=== PATIENT | male | born 1950 | race Caucasian/White ===

== ENCOUNTER 2024-11-25 10:54 | Day surgery (SDC) | payer MEDICARE, OTHER, SELFPAY ==
[2024-11-16 07:46] VITALS: BMI 37.9
[2024-11-25] VITALS (10 sets, daily range): BP systolic 114–160; BP diastolic 63–82; BMI 34.6
[2024-11-25] MEDS: LOW STRENGTH ASPIRIN 81 MG PO (11:32)
[2024-11-25] MEDS: NSS 347 ML IV (11:32)
[2024-11-25 11:52] LABS: Glucose - Point of Care 117 mg/dl (70-99)
--- NOTE | 2024-11-25 17:27 | CONSULT.STRU ---
Consultation
-
Date/Time Consultation Requested: 11/25/2024
Date/Time Consultation Performed: 11/25/2024
Requesting Provider: Malcolm Hopson MD
Performing Provider: HUI Lazo
Reason for Consultation: /TAVR
Patient History
Physicians
Family Physician: Sharron Morel MD
Outpatient Wastewater Treatment Plant Instructor: Vance Grossman DO
Primary Wastewater Treatment Plant Instructor: Vance Grossman DO
History of Present Illness
Mr. Alex is a very pleasant 74 yom with a past medical history significant for CAD, DM, , HTN, TIA, and Carotid artery disease. Echocardiogram from 06/04/2024 is notable for an EF 60-65%, Ascending aorta 4.5cm, aortic root 3.8 cm, AV P/M 115/54,
LOS 1.0, pk shaylee. 5.4, mild AI, mild MR, mild TR. 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 His cardiac catheterization from today demonstrated in LAD stent restenosis. From a symptomatology standpoint, patient describes chest
pain after eating, he denies HERNANDEZ stating he can climb two full flights of stairs without difficulty. Discussed the pathophysiology and treatment options of including SAVR and TAVR. Explained the evaluation process comprising of lab work, CT
scan, dental clearance, CT surgical consult, and a heart team discussion. Informed the patient that the CT scan would give us a lot of valuable information to help develop a plan of care considering his CAD, , and dilated aorta. Explained that
once all of the testing is completed the heart team will review and make a recommendation for best treatment option. TAVR booklet, prescriptions, appointments, and contact information given to patient. Allowed for and answered questions at bedside.
Past Medical History
Past Medical History: CAD, CVA/TIA, HTN, Hypercholesterolemia, NIDDM, ELÍAS (uses CPAP), Valvular Disease () and Other (bilateral carotid artery disease)
Past Surgical History
Past Surgical History: Other (anal fissure, left foot neuroma, left knee/tendon repair. )
Dental History
Family Dental practice in [place]. Patient will make an appointment
Family History
Mother: N/A
Father: N/A
Social History
Alcohol: Occasional
Drug: None
Tobacco: Non-Smoker
Personal:
Living: With Spouse
Allergies
Allergy/AdvReac Type Severity Reaction Status Date / Time
No Known Drug Allergies Allergy Unknown Verified 11/25/24 11:16
Home Medications
�Medication �Instructions �Recorded �Confirmed �Type
metformin 500 mg tablet 500 mg PO BID 11/25/12 11/25/24 History
metoprolol succinate 50 mg 50 mg PO HS 11/25/12 11/25/24 History
tablet,extended release 24 hr
nitroglycerin 0.4 mg sublingual 0.4 mg sublingual [id number] PRN 11/25/12 11/25/24 History
tablet chest pain
aspirin 81 mg tablet,delayed 81 mg PO HS 11/15/24 11/25/24 History
release
atorvastatin 40 mg tablet 40 mg PO HS 11/15/24 11/25/24 History
hydrochlorothiazide 25 mg tablet 25 mg PO HS 11/15/24 11/25/24 History
losartan 100 mg tablet 100 mg PO DAILY 11/15/24 11/25/24 History
hynfqfnsezzl-iqjqdpsy-xwcxqn tablet 1 tab PO DAILY 11/15/24 11/25/24 History
omega-3 fatty acids 1,000 mg 1,000 mg PO HS 11/25/24 11/25/24 History
capsule
STS%
STS %: 0.642
Review of Systems
-
History Source: Patient
General: Reports No Symptoms
HEENT: Reports No Symptoms
Respiratory: Reports No Symptoms
Cardiac: Reports Chest Pain (after eating)
Abdomen/GI: Reports No Symptoms
: Reports No Symptoms
Musculoskeletal: Reports No Symptoms
Skin: Reports No Symptoms
Neurological: Reports No Symptoms
Vascular: Reports No Symptoms
Physical Exam
Vital Signs
Temp 97.9 F 11/25/24 12:06
Pulse 60 11/25/24 17:00
Resp Rate 21 11/25/24 17:00
Blood pressure 149/69 11/25/24 16:41
Blood pressure extremity used: Right upper arm 11/25/24 16:35
Position: Sitting 11/25/24 16:35
MAP (cuff-Kelley Monitor) 92 11/25/24 16:41
SaO2 100 11/25/24 17:00
Oxygen Mode of Delivery Room air 11/25/24 16:35
Can the patient verbally communicate their pain? Yes 11/25/24 16:35
Actual Weight 115.666 kg 11/25/24 11:20
Body Mass Index (BMI) 34.6 11/25/24 11:20
Labs
11/16/2024
HH: 12.6/37.1
Plt: 212K
BUN/Creatinine: 13/0.9
GFR >60
Diagnostic Studies
Procedure Type:�Isolated CABG
Perioperative Outcome Estimate %
Operative Mortality 0.642%
Morbidity & Mortality 4.97%
Stroke 0.999%
Renal Failure 0.805%
Reoperation 1.16%
Prolonged Ventilation 2.42%
Deep Sternal Wound Infection 0.141%
Long Hospital Stay (>14 days) 3.03%
Short Hospital Stay (<6 days)* 53.8%
Exam
General: Well Developed, Well Nourished and No Apparent Distress
HEENT: Normocephalic
Neck: Trachea Midline
Respiratory: Clear (antriorly)
Cardiac: Regular Rhythm and Murmur (III/)
GI: Soft and Non Tender
Rectal: Deferred by Provider
Skin: Warm
Neuro: Awake
Psych: Calm
Assessment / Plan
-
Aortic stenosis
Continue TAVR evaluation
Trend creatinine after contrast (Rx given)
TAVR CT scan (12/07)
CT surgical consult (MPT 12/14)
Frailty testing and KCCQ 12 at consult
Dental clearance
Continue aspirin
Repeat Echocardiogram
Heart team discussion
Data Reviewed
-
Hold Worker: Discussed with Physician
Echo: Discussed with Physician
Labs: Labs Reviewed by me
Old Records: Reviewed
Total Time Spent with Patient (in minutes): 45
--- NOTE | 2024-11-25 18:31 | ITS.CL.PN ---
Electronic Instrument Trades Worker - Procedure Note
Procedure
Procedure Note:
CARDIAC CATHETERIZATION REPORT
Date of Procedure: 11/25/2024
Referring: Dr. Vance Grossman DO
Indication: severe aortic stenosis, chest pain
PROCEDURE(S)
1. left heart catheterization
2. right heart catheterization
ACCESS: 6F right radial artery (closure: radial band), 5 Honduran right brachial vein (closure manual hemostasis)
CATHETERS
1. 6F JR4
2. 6F JL3.5
3. 5F balloon tipped catheter
MODERATE SEDATION: 30 minutes of moderate sedation was utilized. An independent biomedical engineering aide was present to assist with and help manage the patient's level of consciousness and physiologic status.
ULTRASOUND GUIDED VASCULAR ACCESS (right radial artery): Ultrasound was utilized for vascular access. The vessel was visualized under ultrasound and noted to be patent. An image of the vessel was stored permanently in the patient's medical record.
Under direct ultrasound guidance, vascular access was obtained using a modified Seldinger technique and a 6 Honduran sheath was placed.
ULTRASOUND GUIDED VASCULAR ACCESS (right brachial vein): Ultrasound was utilized for vascular access. The vessel was visualized under ultrasound and noted to be patent. An image of the vessel was stored permanently in the patient's medical record.
Under direct ultrasound guidance, vascular access was obtained using a modified Seldinger technique and a 5 Honduran sheath was placed.
HEMODYNAMIC DATA
AO 117/63 (mean 84)
RA 9
RV 31/8 (EDP 12)
PA 25/14 (mean 19)
PCWP 13
CO/CI 6.04/2.56
SVR 980
PVR 1.0
CORONARY ANGIOGRAPHY
Dominance: right
LM: Large long vessel with mild ostial stenosis
LAD: Large vessel giving rise to a large early rising D1. There are overlapping stents from the proximal to mid/distal LAD. There is diffuse mild ISR as well as two focal areas of moderate/severe ISR in the proximal and mid LAD with GEOVANNA-3 flow
distally. The diagonal has a focal 70% stenosis in the proximal aspect of the vessel and otherwise diffuse mild disease.
LCx: Moderate caliber vessel giving rise to a small high rising OM1, moderate caliber bifurcating OM2, and small LPL branch. There is mild nonobstructive disease
RCA: Large vessel giving rise to a moderate caliber RPDA, large RPL1, and moderate caliber RPL2. There is diffuse, mild nonobstructive disease throughout the vessel. There is a 40% stenosis at the ostium.
RADIATION: dose 980 mGy; DAP 73.2 Gy*cm2; fluoroscopy time 17.2 min
CONCLUSIONS
1. coronary artery disease as described with moderate-severe ISR of previously placed LAD stents
2. mildly elevated biventricular filling pressures, normal pulmonary artery pressure, and normal cardiac output and index
RECOMMENDATIONS
1. expectant management after cardiac catheterization via right radial approach
2. proceed with TAVR workup with CT chest/abdomen/pelvis
3. pending completion of workup we will discuss options for valve replacement and revascularization at our multi-disiplinary TAVR meeting
Copy to: Dr. Vance Grossman DO (hospital product specialist)
Signed: Malcolm Hopson MD, PhD
== END 2024-11-25 18:53 | disposition home or self-care (01) ==
LOC: CATH 10:54
PROVIDERS: ATTENDING PHYSICIAN Internal Medicine Cardiovascular Disease; FAMILY PHYSICIAN Family Medicine; OTHER PHYSICIAN Internal Medicine Cardiovascular Disease
DX: I25.10 Atherosclerotic heart disease of native coronary artery without angina pectoris (principal); Z95.5 Presence of coronary angioplasty implant and graft; I77.9 Disorder of arteries and arterioles, unspecified; R07.9 Chest pain, unspecified; E66.01 Morbid (severe) obesity due to excess calories; E78.00 Pure hypercholesterolemia, unspecified; E11.9 Type 2 diabetes mellitus without complications; R06.09 Other forms of dyspnea; I35.0 Nonrheumatic aortic (valve) stenosis; I70.0 Atherosclerosis of aorta; I10 Essential (primary) hypertension; Z79.84 Long term (current) use of oral hypoglycemic drugs; Z86.73 Personal history of transient ischemic attack (TIA), and cerebral infarction without residual deficits; Z79.82 Long term (current) use of aspirin; G47.33 Obstructive sleep apnea (adult) (pediatric); Z79.899 Other long term (current) drug therapy; Z86.018 Personal history of other benign neoplasm
CPT/HCPCS: 76937; 82962; 93306; 93456; 99152; 99153; C1769; C1894; Q9967

== ENCOUNTER → 2024-12-07 10:20 | Outpatient (REF) | payer MEDICARE, OTHER, SELFPAY | LOC: RAD 10:20 | PROVIDERS: ATTENDING PHYSICIAN Nurse Practitioner Acute Care; FAMILY PHYSICIAN Family Medicine | DX: I35.0 Nonrheumatic aortic (valve) stenosis (principal) | CPT/HCPCS: 74174; 75572; Q9967 ==

== ENCOUNTER 2024-12-30 04:45 | Inpatient (IN) | payer MEDICARE, OTHER, SELFPAY ==
[2024-12-16 07:54] VITALS: BMI 40.6
[2024-12-16 08:48] LABS: % Basophils 1.2 % (0-2); % Eosinophils 3.7 % (0-6); % Immature Granulocytes 0.3 % (0-0.5); % Lymphocytes 31.6 % (20.5-51.1); % Monocytes 10.1 % (1.7-9.3); % Neutrophils 53.1 % (42.2-75.2); Absolute Basophils 0.1 10^3/uL (0-0.2); Absolute Eosinophils 0.2 10^3/uL (0-0.7); Absolute Lymphocytes 1.8 10^3/uL (1.2-3.4); Absolute Monocytes 0.6 10^3/uL (0.1-0.6); Hematocrit 35.7 % (39.0-52.0); Hemoglobin 12.3 g/dL (13.0-18.0); Mean Corp Hgb Conc. 34.5 g/dL (33.0-37.0); Mean Corpuscular Hgb 33.3 pg (27.0-31.0); Mean Corpuscular Volume 96.7 fL (80.0-94.0); Mean Platelet Volume 9.3 fL (7.4-10.4); Nucleated Red Blood Cells % 0 % (-); Platelet Count 209 10^3/uL (130-400); Red Blood Cell Count 3.69 10^6/uL (4.70-6.10); Red Cell Dist. Width 12.9 % (11.5-14.5); White Blood Cell Count 5.7 10^3/uL (4.8-10.8)
[2024-12-16 08:52] LABS: INR 0.97; PT 13.4 Sec (11.4-14.6)
[2024-12-16 08:53] LABS: APTT 29.3 Sec (23.4-35.0)
[2024-12-16 08:55] LABS: Urine Albumin Negative (Neg - Trace); Urine Bilirubin Negative (Negative); Urine Character Clear (Clear); Urine Color Yellow; Urine Glucose Negative (Negative); Urine Ketone Negative (Negative); Urine Leukocyte Negative (Negative); Urine Nitrite Negative (Negative); Urine Occult Blood Negative (Negative); Urine Specific Gravity 1.005 (<1.030); Urine Urobilinogen Negative (Neg - 1+)
[2024-12-16 09:10] LABS: ALT (SGPT) 24 U/L (0-50); AST (SGOT) 22 U/L (17-59); Albumin 4.2 g/dl (3.5-5.0); Alkaline Phosphatase 78 U/L (38-126); Blood Urea Nitrogen 17 mg/dl (9-20); Calcium 9.6 mg/dl (8.4-10.2); Carbon Dioxide 30 mmol/L (22-30); Chloride 103 mmol/L (98-107); Direct Bilirubin 0.2 mg/dl (0.0-0.4); Estimated Creatinine Clearance 91 ml/min; Glucose 141 mg/dl (70-99); Sodium 138 mmol/L (135-145); Total Bilirubin 0.5 mg/dl (0.2-1.3); Total Protein 6.9 g/dl (6.3-8.2); eGFR > 60.00
--- NOTE | 2024-12-16 10:09 | CM ---
CM following for DC planning needs.
Met w/ patient during PATs for planned CT Surg., 12/30.
Pt. relays that he resides w/ spouse in a private, 2 st home w/ approx. 4 TERESA. Functionally, patient is indep. prior to admission w/ ADLs, mobility without the use of any assisted device. Pt. works part-time in [employer].
Pt. has RX plan and would use [facility] in [place] for prescription needs.
Reviewed pre and post op routines.
Soap, shower instruction and Cardiac Surgery booklet provided.
Reviewed post op restrictions to include lifting, driving, flying and sternal precautions.
Reviewed post op MD appointments, Cardiac Rehab and visit from CT Transitional Care RN.
Plan is for CT Surg 12/30
Anticipated DC plan is for home w/ CT Transitional Care RN.
[2024-12-16 10:19] LABS: Glycohemoglobin (HgbA1c) 6.5 % (4.0-5.6)
[2024-12-30 04:52] VITALS: BP 154/87
[2024-12-30 04:54] VITALS: BP 169/85
[2024-12-30] MEDS: MAGNESIUM OXIDE 500 MG PO (05:36)
[2024-12-30] MEDS: PROTONIX 40 MG PO (05:36)
[2024-12-30] MEDS: LOPRESSOR 25 MG PO (05:36)
[2024-12-30] MEDS: BACTROBAN 2% OINTMENT 1 APPLIC NASAL ×2 (05:40→19:26)
[2024-12-30 06:00] VITALS: BMI 35.1
--- NOTE | 2024-12-30 06:05 | PTCARENOTE ---
Patient arrived on unit as a same day admission. Ambulated into room, confirmed 2 CHG showers, clipped and wiped with CHG in preparation for surgery. Patient reports taking fish oil and losartan until yesterday. CVPA aware.
[2024-12-30 07:30] LABS: ACT+ - POC 93 Seconds (82-134)
[2024-12-30 07:54] LABS: Urine Albumin Negative (Neg - Trace); Urine Bilirubin Negative (Negative); Urine Character Clear (Clear); Urine Color Yellow; Urine Glucose Negative (Negative); Urine Ketone Negative (Negative); Urine Leukocyte Negative (Negative); Urine Nitrite Negative (Negative); Urine Occult Blood Negative (Negative); Urine Specific Gravity 1.015 (<1.030); Urine Urobilinogen Negative (Neg - 1+)
--- NOTE | 2024-12-30 08:41 | CM ---
Reviewed chart. Mr. Alex is in the operating room today.. Prior to admission he resides with his spouse in a two story home with four steps ti enter. Prior to admission he was independent with ambulation and adls. He has a prescription plan and
uses [facility]. Medial work-up in progress. The discharge plan is to return home with his spouse and a home visit by the Transitional Care Nurse when medically stable.
[2024-12-30 10:07] LABS: B.E. - POC -0.5 mmol/L; Glucose - POC 149 mg/dl (70-99); HCO3 - POC 25 mmol/L (21-28); Hematocrit - POC 34 % PCV (42-52); Hemodilution- POC No; Hemoglobin Calculated - POC 11.5; Ionized Calcium - POC 1.22 mmol/L (1.15-1.33); Lactate - POC 1.51 mmol/L (0.36-0.75); O2 Saturation %Calculated-POC 99.8 % (94-98); PCO2 - POC 42 mmHg (35-48); PO2 - POC 242 mmHg (83-108); Potassium - POC 3.6 mmol/L (3.5-5.1); Sodium - POC 143 mmol/L (136-145); Specimen Type - POC Arterial; pH - POC 7.38 (7.35-7.45)
[2024-12-30 10:29] LABS: B.E. - POC 3.5 mmol/L; Glucose - POC 158 mg/dl (70-99); HCO3 - POC 29 mmol/L (21-28); Hematocrit - POC 25 % PCV (42-52); Hemodilution- POC Yes; Hemoglobin Calculated - POC 8.4; Ionized Calcium - POC 1.03 mmol/L (1.15-1.33); Lactate - POC 1.63 mmol/L (0.36-0.75); O2 Saturation %Calculated-POC 99.9 % (94-98); PCO2 - POC 50 mmHg (35-48); PO2 - POC 358 mmHg (83-108); Potassium - POC 4.8 mmol/L (3.5-5.1); Sodium - POC 138 mmol/L (136-145); Specimen Type - POC Arterial; pH - POC 7.38 (7.35-7.45)
[2024-12-30 10:45] LABS: B.E. - POC 2.6 mmol/L; Glucose - POC 182 mg/dl (70-99); HCO3 - POC 29 mmol/L (21-28); Hematocrit - POC 24 % PCV (42-52); Hemodilution- POC Yes; Hemoglobin Calculated - POC 8.3; Ionized Calcium - POC 1.05 mmol/L (1.15-1.33); O2 Saturation %Calculated-POC 99.9 % (94-98); PCO2 - POC 53 mmHg (35-48); PO2 - POC 364 mmHg (83-108); Potassium - POC 4.9 mmol/L (3.5-5.1); Sodium - POC 139 mmol/L (136-145); Specimen Type - POC Arterial; pH - POC 7.34 (7.35-7.45)
[2024-12-30 10:59] LABS: ACT+ - POC 691 Seconds (82-134)
[2024-12-30 11:21] LABS: B.E. - POC 1.2 mmol/L; Glucose - POC 211 mg/dl (70-99); HCO3 - POC 28 mmol/L (21-28); Hematocrit - POC 28 % PCV (42-52); Hemodilution- POC Yes; Hemoglobin Calculated - POC 9.5; Ionized Calcium - POC 1.07 mmol/L (1.15-1.33); Lactate - POC 2.46 mmol/L (0.36-0.75); O2 Saturation %Calculated-POC 99.9 % (94-98); PCO2 - POC 53 mmHg (35-48); PO2 - POC 342 mmHg (83-108); Potassium - POC 4.7 mmol/L (3.5-5.1); Sodium - POC 139 mmol/L (136-145); Specimen Type - POC Arterial; pH - POC 7.33 (7.35-7.45)
[2024-12-30 11:31] LABS: ACT+ - POC 537 Seconds (82-134)
[2024-12-30 11:44] LABS: B.E. - POC -2.3 mmol/L; Glucose - POC 173 mg/dl (70-99); HCO3 - POC 24 mmol/L (21-28); Hematocrit - POC 29 % PCV (42-52); Hemodilution- POC Yes; Hemoglobin Calculated - POC 9.8; Ionized Calcium - POC 1.07 mmol/L (1.15-1.33); Lactate - POC 2.63 mmol/L (0.36-0.75); O2 Saturation %Calculated-POC 99.9 % (94-98); PCO2 - POC 47 mmHg (35-48); PO2 - POC 280 mmHg (83-108); Sodium - POC 141 mmol/L (136-145); Specimen Type - POC Arterial; pH - POC 7.32 (7.35-7.45)
[2024-12-30 11:54] LABS: ACT+ - POC 448 Seconds (82-134)
[2024-12-30 12:14] LABS: B.E. - POC 0.6 mmol/L; Glucose - POC 137 mg/dl (70-99); HCO3 - POC 27 mmol/L (21-28); Hematocrit - POC 29 % PCV (42-52); Hemodilution- POC Yes; Lactate - POC 2.53 mmol/L (0.36-0.75); PCO2 - POC 51 mmHg (35-48); PO2 - POC 412 mmHg (83-108); Potassium - POC 3.7 mmol/L (3.5-5.1); Sodium - POC 143 mmol/L (136-145); Specimen Type - POC Arterial; pH - POC 7.33 (7.35-7.45)
[2024-12-30 12:26] LABS: ACT+ - POC 618 Seconds (82-134)
[2024-12-30 12:32] LABS: B.E. - POC -1.1 mmol/L; Glucose - POC 147 mg/dl (70-99); HCO3 - POC 25 mmol/L (21-28); Hematocrit - POC 30 % PCV (42-52); Hemodilution- POC Yes; Hemoglobin Calculated - POC 10.1; Ionized Calcium - POC 1.06 mmol/L (1.15-1.33); Lactate - POC 2.71 mmol/L (0.36-0.75); O2 Saturation %Calculated-POC 99.9 % (94-98); PCO2 - POC 44 mmHg (35-48); PO2 - POC 361 mmHg (83-108); Potassium - POC 4.5 mmol/L (3.5-5.1); Sodium - POC 142 mmol/L (136-145); Specimen Type - POC Arterial; pH - POC 7.35 (7.35-7.45)
[2024-12-30] MEDS: ANCEF 10 IV ×2 (13:16→15:06)
[2024-12-30 13:22] LABS: ACT+ - POC 104 Seconds (82-134)
[2024-12-30 13:47] LABS: B.E. - POC -2.4 mmol/L; Glucose - POC 195 mg/dl (70-99); HCO3 - POC 24 mmol/L (21-28); Hematocrit - POC 27 % PCV (42-52); Hemodilution- POC Yes; Hemoglobin Calculated - POC 9.2; Ionized Calcium - POC 1.17 mmol/L (1.15-1.33); Lactate - POC 2.32 mmol/L (0.36-0.75); O2 Saturation %Calculated-POC 99.9 % (94-98); PCO2 - POC 45 mmHg (35-48); PO2 - POC 306 mmHg (83-108); Sodium - POC 144 mmol/L (136-145); Specimen Type - POC Arterial; pH - POC 7.33 (7.35-7.45)
--- NOTE | 2024-12-30 13:48 | W.CVOR.SURPR ---
CVOR Surgeon Immed Pre Op
-
I have examined this patient prior to performance of the scheduled procedure.
The patient's condition is unchanged from the time of the dictated/written History and
Physical and the patient is able to undergo the scheduled procedure.
--- NOTE | 2024-12-30 13:48 | W.IMMPOSTOP ---
Addendum entered and electronically signed by Colton Coleman MD 12/30/24 15:33:
[id number]
Original Note:
Surgical Immed Post Op Note
-
CARDIAC SURGERY OPERATIVE NOTE:
Preoperative Dx:
CAD s/p prior LAD stents w/ ISR, 70% prox dz in large D1, 40% disease in ostial RCA
Severe aortic stenosis (P/M 66/36, LOS 1.3), mild AI
FHx sig for AF
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
Hx of TIA/CVA - no residual defects
NIDDM
MO (BMI 35.0)
ELÍAS on CPAP
HTN
Postoperative Dx:
Same
Procedures:
1) Median sternotomy
2) Takedown of KIRSTIN (narrow pedicle)
3) Endoscopic harvest/prep of RLE GSV
4) CABG x 2 (KIRSTIN to LAD, GSV to D1)
5) ELAA (45mm AtriClip)
6) AVR (#25 Inspiris Resilia)
Surgeon:
Colton Coleman M.D.
Assistants:
Lenore RedeerA.-C.; endoscopic RLE GSV harvest/prep; legal executive assistant throughout
Lenore LinderA.-CWendy; assist w/ endoscopic RLE GSV prep/closure; [id number]-pgtu sternotomy closure
Anesthesia:
Donn Islas M.D. and Alexy Crawford, Kimberly.R.N.A.
Perfusion:
Ro Dejesus C.C.P.; XC: 149min, CPB: 185min
Findings:
KIRSTIN was a healthy conduit w/ very brisk blood flow; ELD 2.75mm
GSV was a healthy conduite w/ ELD 3.0-3.5mm, normal wor[place]
LAD was visible on the epicardial surface w/ visible stents from proximal to distal midpoint of vessel. Anastomosis performed in proximal aspect of distal LAD approximately 1cm distal to end of prior stents; slightly thin walled, but w/ reasonable
ELD 2.50mm
D1 was visible on the epicardial surface, fairly dense scattered calcifications. Anastomosis performed at approximate midpoint of course. Normal wor[place] at anastomotic site, ELD 2.50mm (anastomosis performed over 1.5mm intracoronary shunt secondary
to non-coronary collateral flow).
MATT was of windsock morphology
The ascending aorta was normal in appearance and wall thickness.
AV was trileaflet w/ profound bulky leaflet calcifications with extensive, near circumferential annular extension. Calcium extended into and became congruent with aortic wall calcium surrounding aortic root. Most profound calcifications were at
the junction between the LCC and RCC and along the LCC annulus. There were also significant calcifications at the junction of the NCC and RCC.
AVR was completed w/ 15 interrupted, pledgetted valve sutures and CorKnots w/ placement of #25 Inspiris Resilia valve. No AI/PVL, mean gradient 8mmHg under GA
Complications:
New bundle branch block - temporary epicardial V-wire in place
During CPB, a connection on the heart-lung machine became disconnected (bottom of hemoconcentrator) w/ a fair amount of blood loss. CPB was very transiently discontinued to address this issue, during which time the patient's MAPs expectedly
decreased. The issue was addressed and flows were restored w/ restablishment of good perfusion/MAPs. The patient was transfused to address the ELB associated with this malfunction/disconnection.
Transfusions:
2U PRBC
Implants:
[employer], Inspiris Resilia AVR, #25mm, SN: [id number]
AtriClip, 45mm, LOT [id number]
Bipolar epicardial V-wire x 1
CT x 4 (B/L pleural, inferior mediastinal, superior mediastinal)
Sternal wires x 8
Sternal 'X' plate w/ 4 - 14mm and 4 - 12mm screws
Sternal 'Square' plate w/ 4 - 12mm
Condition:
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
GTTS: levophed 4, precedex 0.5, insulin 2
Stable/guarded to CVICU
[2024-12-30 14:40] LABS: Glucose - Point of Care 99 mg/dl (70-99)
--- NOTE | 2024-12-30 14:42 | W.PN.CD ---
Addendum entered and electronically signed by Enmanuel Gordon MD 12/30/24 16:07:
I saw and examined the patient.
The COMPUTER CONSULTANT's note was reviewed and I agree with the note.
Comment:
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
Some blood loss with surgery. He is intubated and sedated. He is on levophed and nicardipine gtt. intubated and calm, rrr normal s1s2, lungs cta, extremities cool, skin pale.Will continue to wean gtts as able, will hopefully extubate today.
Supportive care post op day 0. ECG with new lbbb from incomplete, will watch.
Original Note:
Today's Communication / Plan
-
Close post-op monitoring and care with weaning of drips and vent as tolerated per CT surgery/CVICU protocol
Impression / Plan
-
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
Aortic stenosis, coronary artery disease:
-s/p CABG x 2 (KIRSTIN to LAD, GSV to D1), ELAA (45mm AtriClip), 6) AVR (#25 Inspiris Resilia), Dr. Coleman 12/30/24
-intra-op JUAN CARLOS with EF 55-60%
-post-op EKG SR with LBBB (previously IC LBBB), follow telemetry
-received 2 units PRBC intra-op
-intubated and sedated post-op
-remains on Levophed
-CT's and barron in place
-ASA, statin, BB
HTN:
-monitor post-op
-on ARB/HCTZ/metoprolol as OP
-on levo as above post-op
HLD:
-statin
DM:
-insulin drip ordered post-op per protocol
Physical Exam
Vital Signs/Labs
Vital Signs
Pulse BP Pulse Ox
72 154/87 97
12/30/24 05:36 12/30/24 05:36 12/30/24 04:51
12/29/24 12/30/24 12/31/24
06:59 06:59 06:59
Actual Weight 117.2 kg
PT 13.4 Sec (11.4-14.6) 12/16/24 08:06
INR 0.97 12/16/24 08:06
APTT 29.3 Sec (23.4-35.0) 12/16/24 08:06
Physical Exam
Constitutional: No acute distress
EENT: Anicteric
Cardiovascular: Rhythm & rate is regular
Respiratory: Lungs clear to auscul. and Other (intubated/ventilated)
Neuro/Psych: Other (sedated)
Other: Skin (midsternal incision site dressing CDI)
Data Reviewed
-
Date of Service: December 30, 2024
EKG: Tracing Personally Visualized and interpreted (SR with LBBB) and Other (tele SR)
Medical Tests (PFT, Pathology etc): Report Reviewed by me (EF on intra-op JUAN CARLOS as noted)
Labs: Labs Reviewed by me
[2024-12-30 14:43] LABS: B.E. -9.7 mmol/L; Ionized Calcium 0.86 mMOL/L (1.15-1.33); O2 Saturation % 99.8 % (94-98); PCO2 31 mmHg (35-48); PO2 89 mmHg (83-108); Sodium 141 mMOL/L (136-145); pH 7.31 (7.35-7.45)
[2024-12-30 14:47] LABS: HCO3 15.6 mmol/L (21-28); Hematocrit 28.1 % (39.0-52.0); Hemoglobin 9.8 g/dL (13.0-18.0); Platelet Count 117 10^3/uL (130-400); Potassium 2.2 mMOL/L (3.5-5.1)
[2024-12-30 14:56] LABS: B.E. - POC -1.6 mmol/L; Blood Urea Nitrogen - POC 17 mg/dl (3-120); Chloride - POC 108 mmol/L (96-111); Creatinine - POC 0.93 mg/dl (0.3-1.0); Glucose - POC 180 mg/dl (70-99); HCO3 - POC 24 mmol/L (21-28); Hematocrit - POC 27 % PCV (42-52); Hemodilution- POC Yes; Hemoglobin Calculated - POC 9.3; Ionized Calcium - POC 1.23 mmol/L (1.15-1.33); Lactate - POC 2.23 mmol/L (0.36-0.75); O2 Saturation %Calculated-POC 97.2 % (94-98); PCO2 - POC 46 mmHg (35-48); PO2 - POC 100 mmHg (83-108); Sodium - POC 142 mmol/L (136-145); Specimen Type - POC Arterial; pH - POC 7.34 (7.35-7.45)
[2024-12-30 15:00] LABS: INR 1.47; PT 18.3 Sec (11.4-14.6)
[2024-12-30] MEDS: NEURONTIN PO ×2 (15:00→17:11)
--- NOTE | 2024-12-30 15:00 | PTCARENOTE ---
received patient from CVOR sedated and placed on vent by WHIPPED TOPPING FINISHER. Out with usual lines, CTx4 placed to -20 wall suction. no air leak/crepitus. draining red. HR 50s. SB. V wires present and set to back up rate 30/10. hypo bowel sounds. barron draining
clear yellow urine. Pulses weakly palpable. trace edema. All surgical sites c/d/i. EKG CXR done and labs drawn and sent. Out on levo insulin per glycemic protocol and precedex. will wean medications as tolerated. and brother updated at bedside.
will continue to monitor.
[2024-12-30 15:01] LABS: APTT 32.7 Sec (23.4-35.0)
[2024-12-30] MEDS: NOVOLOG FLEXPEN SC ×2 (15:01→17:12)
[2024-12-30] MEDS: THERAGRAN PO (15:01)
[2024-12-30] MEDS: TYLENOL PO (15:01)
[2024-12-30] MEDS: NSS 500 IV (15:02)
[2024-12-30 15:09] LABS: Blood Urea Nitrogen 17 mg/dl (9-20); Estimated Creatinine Clearance 107 ml/min; Glucose 170 mg/dl (70-99); Magnesium 2.7 mg/dl (1.6-2.3)
[2024-12-30 15:10] LABS: ACT+ - POC > 1003 Seconds (82-134)
[2024-12-30 15:10] LABS: ACT+ - POC > 1003 Seconds (82-134)
[2024-12-30 15:35] LABS: Glucose - Point of Care 190 mg/dl (70-99)
--- NOTE | 2024-12-30 16:03 | CON.INTV ---
Consultation
Consultation Request
Date/Time Consultation Requested: 12/30/24
Date/Time Consultation Performed: 12/30/24
Performing Provider: Cruz
Reason for Consultation: CVICU
Medical History
-
History of Present Illness:
Patient is a 74-year-old male with previous history of CAD status post stent 2013, hypertension, hyperlipidemia, diabetes with history of severe and recent C with significant in-stent restenosis of LAD. Underwent outpatient TAVR workup and
presented today for elective procedure to address both conditions. Underwent CABG x 2 with AVR 12/30 and postoperatively transferred to CVICU on mechanical ventilation.
Past Medical History
Past Medical History: Other (see list below)
Family History
Family History: Unable to Obtain
Allergies / Home Medications
Allergies
Allergy/AdvReac Type Severity Reaction Status Date / Time
No Known Drug Allergies Allergy Unknown Verified 12/15/24 09:37
Home Medications
�Medication �Instructions �Recorded �Confirmed �Last Taken �Type
metformin 500 mg tablet 500 mg PO BID Diabetes 11/25/12 12/30/24 12/29/24 21:30 History
metoprolol succinate 50 mg 50 mg PO HS Heart Disease/Condition 11/25/12 12/30/24 12/29/24 21:30 History
tablet,extended release 24 hr
nitroglycerin 0.4 mg sublingual 0.4 mg sublingual [id number] PRN 11/25/12 12/30/24 Unknown History
tablet chest pain
aspirin 81 mg tablet,delayed 81 mg PO HS Blood Clot 11/15/24 12/30/24 12/29/24 21:30 History
release Prevention/Tx
atorvastatin 40 mg tablet 40 mg PO HS High Cholesterol 11/15/24 12/30/24 12/29/24 21:30 History
hydrochlorothiazide 25 mg tablet 25 mg PO HS Blood Pressure 11/15/24 12/30/24 12/29/24 21:30 History
losartan 100 mg tablet 100 mg PO DAILY Blood Pressure 11/15/24 12/30/24 12/29/24 09:30 History
omega-3 fatty acids 1,000 mg 1,000 mg PO HS Supplement 11/25/24 12/30/24 12/29/24 21:30 History
capsule
multivitamin 1 tab PO DAILY Supplement 12/15/24 12/30/24 12/29/24 09:30 History
Review of Systems
-
Unable to Obtain full review of systems at this time due to: Patient Intubation
Vitals / Labs / Diagnostic Testing
Vital Signs
Temp Pulse Resp BP Pulse Ox
97.3 F 54 16 154/87 99
12/30/24 15:00 12/30/24 15:00 12/30/24 15:00 12/30/24 05:36 12/30/24 15:51
Lab Data
12/30/24 14:34
Laboratory Results
12/30/24
14:34
PT 18.3 H
INR 1.47
APTT 32.7
pH 7.31 L
pCO2 31 L
pO2 89
HCO3 15.6 L*
O2 Delivery Level
Diagnostic Testing:
Physical Exam
-
HEENT: Normocephalic, Anicteric and Moist Mucous Membranes
Cardiovascular: S1/S2 and Regular Rhythm
Respiratory: Clear, Non-Labored Respirations and Other (ETT/intubated, chest tubes)
GI: Soft, Non Distended and Non Tender
Neurology: Other (sedated, nonverbal)
Skin: Warm, Dry and Good Color
General: Comfortable and Other (NAD)
Assessment
-
Patient is a 74-year-old male with previous history of CAD status post stent 2012, hypertension, hyperlipidemia, diabetes with history of severe and recent [facility] with significant in-stent restenosis of LAD. Underwent outpatient TAVR workup and
presented today for elective procedure to address both conditions. Underwent CABG x 2 with AVR 12/30 and postoperatively transferred to CVICU on mechanical ventilation.
Severe s/p AVR 12/30
ISR of LAD s/p CAB x 2 12/30
Perioperative mechanical ventilation
Postop anemia, thrombocytopenia
Hyperglycemia
Conditions present prior to admission
CAD status post stent x 3 to LAD in 2012
Diabetes
Hypertension
Hyperlipidemia
Obesity
TIAs
Bilateral carotid artery stenosis
ELÍAS on CPAP
Anal fissure
Left foot neuroma
Left knee tendon repair
Pulmonary nodule, 6mm
Plan
S/p CAB x 2, AVR POD #0
Titrate off pressors per protocol
ECHO reviewed with normal function
PA catheter readings reviewed
Management of chest tubes per primary service
Intubated/sedated, initiate SAT when able
Pain control
RASS goal of 0 to -1
Intubated for procedure, SBT trial when patient able to spontaneously breath
Current vent settings: SIMV 550/16/40/5
ABG(s) reviewed/alkalotic, likely overbreathing
CXR with no obvious opacities/infiltrates, low lung volumes, ETT in good position, lines/tubes in place
Extubate per protocol
Maintain supplement oxygen as needed
Prior history of pulmonary disease-- ELÍAS on CPAP
Can resume PAP post extubation
Prior PFTs reviewed--normal function
Does have incidental nodule on CT, will need to follow as OP, will place info in chart
Can add nebulizers if needed
Aspiration precautions
Encouraged incentive spirometry, OOB/ambulation/early mobility
Advance diet as tolerated following extubation
GI prophylaxis if indicated for mechanical ventilation >48 hours
Monitor critical I/O's
Jeong/chest tube output
Hb/platelets postoperatively stable
Trend CBC for now
Can transfuse if indicated for Hb <7, plt <50 in surgical patients
DVT prophylaxis including SCDs
Insulin protocol initiated and ongoing
Transition to SQ/off as indicated per team
We will follow
Diagnostic Data
Chest X-Ray: 12/30/24- Support lines and tubes in place. No pneumothorax identified on this supine examination. No significant vascular congestion. Opacity in retrocardiac left lower lobe, likely atelectasis.
CT Scan: CHEST/TAVR 12/07/24- The central airways are patent. There is no bronchiectasis. There is minimal bibasilar bronchial wall thickening. There is linear subsegmental atelectasis within the lower lobes bilaterally. There is a 6 mm pleural-based
nodule within the posterior right lower lobe (series 601 image 408).
Echo: 12/30/24- Normal biventricular systolic function with no regional wall motion abnormalities. LVEF is 55-60% by visual inspection. Concentric hypertrophy of the left ventricle is present. Severe aortic stenosis of a calcified trileaflet valve
with mild regurgitation. Mild mitral regurgitation. Mild tricuspid regurgitation. Normal left atrial appendage. Grade III atheromatous disease of the arch and descending aorta. A small [id number] ASD/PFO is seen.
[facility] 11/25/24- CONCLUSIONS
1. coronary artery disease as described with moderate-severe ISR of previously placed LAD stents
2. mildly elevated biventricular filling pressures, normal pulmonary artery pressure, and normal cardiac output and index
PFT's: [place] 12/16/24: FEV1 3.02L 105%, FVC 4.23L 111%, ratio 71 (normal)
Reports and relevant images were personally reviewed.
Critical Care time 45 mins -- The patient is admitted for acute critical illness for the treatment of vital organ failure and/or prevention of further life-threatening conditions. Total care includes time spent in review of history, physical exam,
medications, hemodynamic/ventilator parameters, laboratory data, imaging and discussion with house staff, pharmacy, respiratory therapy, pulling unit floorhand, and nursing.
[2024-12-30 16:34] LABS: Glucose - Point of Care 195 mg/dl (70-99)
[2024-12-30 17:04] LABS: B.E. - POC -1.1 mmol/L; Blood Urea Nitrogen - POC 18 mg/dl (3-120); Chloride - POC 108 mmol/L (96-111); Creatinine - POC 0.82 mg/dl (0.3-1.0); Glucose - POC 184 mg/dl (70-99); HCO3 - POC 25 mmol/L (21-28); Hematocrit - POC 29 % PCV (42-52); Hemodilution- POC Yes; Lactate - POC 2.28 mmol/L (0.36-0.75); O2 Saturation %Calculated-POC 97.4 % (94-98); PCO2 - POC 45 mmHg (35-48); PO2 - POC 101 mmHg (83-108); Sodium - POC 142 mmol/L (136-145); Specimen Type - POC Arterial; pH - POC 7.35 (7.35-7.45)
[2024-12-30 17:05] LABS: Hematocrit 28.1 % (39.0-52.0); Platelet Count 126 10^3/uL (130-400)
[2024-12-30] MEDS: PACERONE PO (17:11)
[2024-12-30] MEDS: DILAUDID 0.25 MG IV (17:23)
--- NOTE | 2024-12-30 17:27 | PTCARENOTE ---
extubated to CPAP with 6L nc at 1715 with resp therapist at bedside. pt reported back pain. see MAR for med dosing.
[2024-12-30 17:31] LABS: Glucose - Point of Care 160 mg/dl (70-99)
--- NOTE | 2024-12-30 17:37 | RESPNOTE ---
Pt extubated to CPAP 10 with O2 6L without complications, SAO2 99% at 17:15
[2024-12-30] MEDS: DILAUDID 0.5 MG IV ×2 (18:15→21:17)
[2024-12-30 18:34] LABS: Glucose - Point of Care 145 mg/dl (70-99)
[2024-12-30 18:45] LABS: Hepatitis C Antibody Negative (Negative)
--- NOTE | 2024-12-30 19:15 | PTCARENOTE ---
tolerated ice chips. VSS.
[2024-12-30] MEDS: ZOFRAN 4 MG IV (19:18)
[2024-12-30] MEDS: LOW STRENGTH ASPIRIN 81 MG PO (19:24)
[2024-12-30] MEDS: ROXICODONE 5 MG PO (19:25)
[2024-12-30] MEDS: ANCEF 5 IV (19:26)
[2024-12-30 19:34] VITALS: BP 92/57
--- NOTE | 2024-12-30 20:00 | PTCARENOTE ---
received pt from previous rn. Pt AAOx3, drowsy. Sinus launne per tele monitor HR 50s. trace edema noted. weak palpable pulses throughout. pox 98-100% on 3L NC. CTx4 placed to -20 wall suction. no air leak/crepitus. draining red. lungs diminished.
hypoactive bs. pt c/o Nausea and back pain. See MAR. barron draining clear yellow urine. all surgical sites c/d/i. RIJ cordis w/ swan floated to 46. pivx1 intact. all lines zeroed and flushed. plan of care discussed questions encouraged.
[2024-12-30] MEDS: OFIRMEV 100 IV (20:02)
[2024-12-30 20:19] LABS: Glucose - Point of Care 131 mg/dl (70-99)
[2024-12-30] MEDS: REGLAN 10 MG IV (20:37)
[2024-12-30] MEDS: SENOKOT-S PO (21:06)
[2024-12-30 22:00] VITALS: BP 108/64
[2024-12-30 22:17] LABS: Glucose - Point of Care 125 mg/dl (70-99)
[2024-12-30 23:00] VITALS: BP 104/60
[2024-12-31] VITALS (35 sets, daily range): BP systolic 94–158; BP diastolic 48–82; PULSE 71; O2SAT 96–98; BMI 35.6
[2024-12-31 00:15] LABS: Glucose - Point of Care 104 mg/dl (70-99)
[2024-12-31] MEDS: DILAUDID 0.5 MG IV ×3 (00:18→21:41)
[2024-12-31] MEDS: NEURONTIN 100 MG PO ×4 (00:19→21:41)
[2024-12-31] MEDS: TYLENOL PO (00:24)
--- NOTE | 2024-12-31 00:30 | PTCARENOTE ---
pt c/o back pain SEE NOV. Sinus michael HR 50, assessment remains unchanged
[2024-12-31 02:08] LABS: Glucose - Point of Care 123 mg/dl (70-99)
--- NOTE | 2024-12-31 02:09 | W.PN.CT ---
Today's Communication / Plan
-
- no issues overnight, patient complained of nausea and back pain
- Hemodynamics: HR 63, BP 119/65, CI 2.25 off and cardene
- Chest tubes: meds cc since OR, pleurals cc since OR
- TERESA drain in leg 65 cc since OR, will d/c
- discontinue Michael, amonty, barron
- OOB
- pulm toilet
Assessment / Plan
-
s/p CABG x 2 (KIRSTIN to LAD, GSV to D1), AVR with a 25mm Inspiris Resilia, and ELAA wiht a 45mm AtriClip POD#1
- Coronary artery disease status post PCI of LAD
- Severe aortic stenosis (P/M 66/36, LOS 1.3)
- b/l carotid artery stenosis with known chronic total occlusion of
left internal carotid artery
- History of transient ischemic attack/cerebrovascular accident, no residual defects.
- Non insulin-dependent diabetes mellitus.
- Morbid obesity (body mass index 35.0).
- Obstructive sleep apnea on CPAP.
- Hypertension.
- HLD
- acute blood loss anemia requiring transfusion
Subjective
Procedure
s/p CABG x 2 (KIRSTIN to LAD, GSV to D1), AVR with a 25mm Inspiris Resilia, and ELAA wiht a 45mm AtriClip on 12/30/[address] Coleman.
-
Date of Service: December 31, 2024
Objective Data
-
Lab Results
12/31/24 02:30
12/31/24 02:30
PT 18.3 Sec (11.4-14.6) H 12/30/24 14:34
INR 1.47 12/30/24 14:34
APTT 32.7 Sec (23.4-35.0) 12/30/24 14:34
Vital Signs
Vital Signs
Temp Pulse Resp BP Pulse Ox
98.9 F 58 17 99/82 97
12/31/24 01:00 12/31/24 01:00 12/31/24 01:00 12/31/24 00:00 12/31/24 01:00
CT Intake/Output/Weight
12/30/24 12/30/24 12/31/24
06:59 18:59 06:59
Intake Total 724.3 / 1088.2 363.9 / 1088.2
Output Total 680 / 1185 505 / 1185
Balance 44.3 / -96.8 -141.1 / -96.8
SaO2: 97
Physical Exam
-
General: AOx3
Cardiovascular: Regular rate & rhythm (occasional PAC's)
Respiratory: Decreased Breath Sounds
Sternum: Stable
Incision: Dressing Intact
Extremities: No Edema
[2024-12-31 03:04] LABS: Hematocrit 25.5 % (39.0-52.0); Hemoglobin 9.1 g/dL (13.0-18.0); Mean Corp Hgb Conc. 35.7 g/dL (33.0-37.0); Mean Corpuscular Hgb 32.6 pg (27.0-31.0); Mean Corpuscular Volume 91.4 fL (80.0-94.0); Mean Platelet Volume 9.8 fL (7.4-10.4); Platelet Count 136 10^3/uL (130-400); Red Blood Cell Count 2.79 10^6/uL (4.70-6.10); Red Cell Dist. Width 14.6 % (11.5-14.5); White Blood Cell Count 11.1 10^3/uL (4.8-10.8)
[2024-12-31] MEDS: LIPITOR PO (03:08)
[2024-12-31] MEDS: PACERONE PO (03:08)
[2024-12-31] MEDS: DILAUDID 0.25 MG IV (03:09)
[2024-12-31 03:14] LABS: Blood Urea Nitrogen 21 mg/dl (9-20); Calcium 8.1 mg/dl (8.4-10.2); Carbon Dioxide 25 mmol/L (22-30); Chloride 110 mmol/L (98-107); Estimated Creatinine Clearance 107 ml/min; Glucose 131 mg/dl (70-99); Magnesium 2.4 mg/dl (1.6-2.3); Potassium 4.4 mmol/L (3.5-5.1); Sodium 140 mmol/L (135-145); eGFR > 60.00
[2024-12-31 04:03] LABS: Glucose - Point of Care 137 mg/dl (70-99)
[2024-12-31] MEDS: ANCEF 5 IV ×2 (04:08→11:58)
--- NOTE | 2024-12-31 04:16 | PTCARENOTE ---
NSR HR 60s, CTPA Brandon removed TERESA drain from R leg w/ no incident, assessment remains unchanged
[2024-12-31 06:09] LABS: Glucose - Point of Care 113 mg/dl (70-99)
[2024-12-31] MEDS: TYLENOL 1000 MG PO ×3 (06:34→21:41)
--- NOTE | 2024-12-31 07:14 | W.PN.CD ---
Today's Communication / Plan
-
Routine post operative management.
Incentive spirometry.
Ambulate.
Restart metformin.
Consider furosemide 40 mg IV x1 and monitor.
Impression / Plan
-
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
#Aortic stenosis
-Chronic, progressive.
-S/P #25 Shankar Inspiris Resilia SAVR with Dr. Coleman, 12/30/2024.
-Post-op EKG SR with LBBB (previously IC LBBB), follow telemetry.
-Anticipate routine post operative management.
-Wean pressors/inotropes for MAP > 65 mmHg, CI > 1.8 L/min/m2.
-Incentive spirometry.
-Ambulate.
-Pain/chest tube management per CT surgery.
-BP stable. Consider furosemide 40 mg IV x1 and monitor (can defer to tomorrow).
#CAD
-Chronic, progressive.
-S/P CABG x2 (REID to LAD, SVG to D1) with Dr. Coleman, 12/30/2024.
-Post operative management as above.
-Secondary prevention with high dose, high potency statin.
-
#HTN
-Chronic, stable.
-Monitor post-op.
-Re-introduce antihypertensive medications as indicated.
#HLD
-Chronic, stable.
-Continue high dose, high potency statin.
-Goal LDL < 55.
#NIDDM
-Chronic, stable.
-Post op insulin per protocol.
-Resume metformin.
Critical Care Time = 40 minutes.
Subjective/Interval History:
CABG + AVR yesterday.
Extubated post op.
Weight up 1.7 kg.
SaO2 97% on 2LNC.
DATA:
PFT's, 12/16/2024:
FEV1/FVC Ratio of 71%.
FEV1 was 3.02L or 105% of predicted.
FVC was 4.23L or 111% of predicted.
The flow volume curve is normal.
Intraprocedural JUAN CARLOS, 12/30/2024:
CONCLUSIONS
Normal biventricular systolic function with no regional wall motion
abnormalities. LVEF is 55-60% by visual inspection. Concentric hypertrophy of
the left ventricle is present.
Severe aortic stenosis of a calcified trileaflet valve with mild regurgitation.
Mild mitral regurgitation.
Mild tricuspid regurgitation.
Normal left atrial appendage.
Grade III atheromatous disease of the arch and descending aorta.
A small [id number] ASD/PFO is seen.
POST OPERATIVE FINDINGS
S/P AVR with size 25 bioprosthetic valve; CABG x 2: REID-LAD; SVG-D1, MATT
exclusion.
The bioprosthetic valve is well-seated with no paravalvular leak. The mean
gradient is 8 mmHg with an index of 2.5 L/min/meters sq. The left atrial
appendage is no longer visible with the absence of flow confirmed by color flow
Doppler. Otherwise unchanged exam.
CABG/AVR, 12/30/2024:
PROCEDURES:
1. Median sternotomy
2. Takedown of KIRSTIN (narrow pedicle)
3. Endoscopic harvest/prep of RLE GSV
4. CABG x 2 (KIRSTIN to LAD, GSV to D1)
5. ELAA (45mm AtriClip)
6. AVR (#25 Inspiris Resilia)
Cardiac Catheterization, 11/25/2024:
CORONARY ANGIOGRAPHY
Dominance: right
LM: Large long vessel with mild ostial stenosis
LAD: Large vessel giving rise to a large early rising D1. There are overlapping stents from the proximal to mid/distal LAD. There is diffuse mild ISR as well as two focal areas of moderate/severe ISR in the proximal and mid LAD with GEOVANNA-3 flow
distally. The diagonal has a focal 70% stenosis in the proximal aspect of the vessel and otherwise diffuse mild disease.
LCx: Moderate caliber vessel giving rise to a small high rising OM1, moderate caliber bifurcating OM2, and small LPL branch. There is mild nonobstructive disease
RCA: Large vessel giving rise to a moderate caliber RPDA, large RPL1, and moderate caliber RPL2. There is diffuse, mild nonobstructive disease throughout the vessel. There is a 40% stenosis at the ostium.
Physical Exam
Vital Signs/Labs
Vital Signs
Temp Pulse Resp BP Pulse Ox
37.4 C 70 18 119/59 97
12/31/24 04:00 12/31/24 06:00 12/31/24 06:00 12/31/24 06:00 12/31/24 06:00
12/29/24 12/30/24 12/31/24
11:59 11:59 11:59
Actual Weight 117.2 kg 118.9 kg
12/31/24 02:30
12/31/24 02:30
PT 18.3 Sec (11.4-14.6) H 12/30/24 14:34
INR 1.47 12/30/24 14:34
APTT 32.7 Sec (23.4-35.0) 12/30/24 14:34
Magnesium 2.4 mg/dl (1.6-2.3) H 12/31/24 02:30
Physical Exam
Constitutional: No acute distress and Comfortable
EENT: Anicteric and Moist mucous membranes
Cardiovascular: Rhythm & rate is regular, Pedal edema present, S1S2 is normal and Rub present
Respiratory: Respiratory effort normal and Other (Decreased throughout.)
GI: Soft, Distention absent, Flat, Non tender and Normal bowel sounds
Neuro/Psych: AO x 3
Data Reviewed
-
Date of Service: December 31, 2024
Medical Decision Making: Reviewed Test Results, Independent Historian Assessment, Test Interpretation and Review of Case with other Provider
EKG: Tracing Personally Visualized and interpreted and Report Reviewed by me
Echo: Report Reviewed by me
X-Ray/CT/US/MRI/NUC/PET: Image Personally Visualized and interpreted and Report Reviewed by me
Medical Tests (PFT, Pathology etc): Report Reviewed by me
Labs: Labs Reviewed by me
Old Records: Reviewed
--- NOTE | 2024-12-31 07:17 | PTCARENOTE ---
Michael d/c'd and bhanu d/c'd @0500. Jean-Paul d/c'd @0600. pt DTV by 4525.
--- NOTE | 2024-12-31 07:50 | W.PN.ANS.POP ---
Anesthesia Post Operative
- Anesthesia Post Op Note
Vital Signs Stable-See Nursing Note: Yes
Airway Patent: Yes
Adequate Pain Control: Yes
Change in Mental Status: No
Current Postoperative Nausea & Vomiting: No
Anesthesia Complications: No
General Anesthetic Recall: No
Unplanned Admission: No
Post Op Hydration Adequate: Yes
--- NOTE | 2024-12-31 08:00 | PTCARENOTE ---
pt received from previous RN, oriented, OOB in chair. SR w/ occasional PVCs on the monitor, HR 70-80s. V wire in place, VVI 30/10. SBP 130-150s. palpable pulses, trace generalized edema. pt on 2LNC, 96% POX. lungs clear, diminished in bases. IS
encouraged. CTx4, no air leak or crepitus noted. pt abdomen s/n, denies n/v. tolerating clears. DTV post Jeong removal. sternal incision intact. chest tube dressing c/d/i. R groin intact. RLE incision TRIAL JUDGE. R medial knee puncture, from previous TERESA
drain, intact. RIJ cordis maintained. PIV. insulin gtt running as ordered. see worklist for VS, I&O, and assessment.
[2024-12-31 08:10] LABS: Glucose - Point of Care 159 mg/dl (70-99)
[2024-12-31] MEDS: NOVOLOG FLEXPEN SC (08:19)
[2024-12-31] MEDS: MAGNESIUM OXIDE 500 MG PO (08:59)
[2024-12-31] MEDS: THERAGRAN 1 TABLET PO (09:00)
[2024-12-31] MEDS: PLAVIX 75 MG PO (09:00)
[2024-12-31] MEDS: PROTONIX 40 MG PO (09:00)
[2024-12-31] MEDS: LIDOCAINE 4% PATCH 1 PATCH TOPICAL (09:00)
[2024-12-31] MEDS: PACERONE 200 MG PO ×3 (09:00→21:41)
[2024-12-31] MEDS: SENOKOT-S 1 TABLET PO ×2 (09:00→20:25)
[2024-12-31] MEDS: BACTROBAN 2% OINTMENT 1 APPLIC NASAL ×2 (09:00→20:26)
[2024-12-31] MEDS: LOW STRENGTH ASPIRIN 81 MG PO (09:00)
[2024-12-31] MEDS: LOPRESSOR 12.5 MG PO ×2 (09:00→20:26)
[2024-12-31 10:06] LABS: Glucose - Point of Care 178 mg/dl (70-99)
--- NOTE | 2024-12-31 10:11 | PTCARENOTE ---
pt ambulated in room, felt lightheaded/dizzy, SBP 130s, POX. 97% on 2LNC. resting in bed, pt states feels better.
[2024-12-31 11:12] LABS: Glucose - Point of Care 125 mg/dl (70-99)
[2024-12-31] MEDS: NSS IV (11:58)
[2024-12-31] MEDS: TORADOL 15 MG IV (11:58)
--- NOTE | 2024-12-31 12:00 | PTCARENOTE ---
pt VSS, OOB to chair w/ assistance. PRN Toradol given for pain as ordered.
[2024-12-31 12:02] LABS: Glucose - Point of Care 104 mg/dl (70-99)
[2024-12-31] MEDS: NOVOLOG FLEXPEN 4 UNITS SC ×2 (12:05→17:58)
--- NOTE | 2024-12-31 12:16 | CM ---
Reviewed chart. Met with Mr. Alex to review discharge plans. He states he is feeling better today. He states prior to admission he resides with his spouse in a two story home with three steps to enter from the back. He states he has a full
flight of steps to get to bedroom. He states he has a full bathroom on each level. He states prior to admission he was independent with ambulation and adls. He states he does not have any DME in the home. He states he has a prescription plan. He
states his spouse will be home to assist in his care if needed. We reviewed a home visit by the Transitional Care Nurse. He is agreeable to a home visit. Medical work-up in progress. The discharge plan is to return home with his spouse and a home
visit by the Transitional Care Nurse Care Nurse when medically stable.
--- NOTE | 2024-12-31 12:50 | W.PN.INTV ---
Today's Communication / Plan
Recommendations
Doing well, off pressors
Stable on RA, tolerated extubation
Encouraged IS, PT, ambulation
Can transfer to tele once off gtts, we will sign off upon transfer
Assessment
-
Patient is a 74-year-old male with previous history of CAD status post stent 2012, hypertension, hyperlipidemia, diabetes with history of severe and recent [facility] with significant in-stent restenosis of LAD. Underwent outpatient TAVR workup and
presented today for elective procedure to address both conditions. Underwent CABG x 2 with AVR 12/30 and postoperatively transferred to CVICU on mechanical ventilation.
Severe s/p AVR 12/30
ISR of LAD s/p CAB x 2 12/30
Perioperative mechanical ventilation
Postop anemia, thrombocytopenia
Hyperglycemia
Conditions present prior to admission
CAD status post stent x 3 to LAD in 2012
Diabetes
Hypertension
Hyperlipidemia
Obesity
TIAs
Bilateral carotid artery stenosis
ELÍAS on CPAP
Anal fissure
Left foot neuroma
Left knee tendon repair
Pulmonary nodule, 6mm
Plan
S/p CAB x 2, AVR POD #1
Titrated off pressors per protocol
ECHO reviewed with normal function
PA catheter discontinued
Management of chest tubes per primary service
Pain control
RASS goal of 0 to -1
Intubated for procedure, extubated 12/30 and doing well
ABG(s) reviewed/alkalotic, likely overbreathing
CXR with stable postop changes
Extubated per protocol
Maintain supplement oxygen as needed, currently stable on RA
Prior history of pulmonary disease-- ELÍAS on CPAP
Can resume PAP post extubation
Prior PFTs reviewed--normal function
Does have incidental nodule on CT, will need to follow as OP, will place info in chart
Can add nebulizers if needed
Aspiration precautions
Encouraged incentive spirometry, OOB/ambulation/early mobility
Advance diet as tolerated following extubation
GI prophylaxis if indicated for mechanical ventilation >48 hours
Monitor critical I/O's
Jeong/chest tube output
Hb/platelets postoperatively stable
Trend CBC for now
Can transfuse if indicated for Hb <7, plt <50 in surgical patients
DVT prophylaxis including SCDs
Insulin protocol initiated and ongoing
Transition to SQ/off as indicated per team
Diagnostic Data
Chest X-Ray: 12/30/24- Support lines and tubes in place. No pneumothorax identified on this supine examination. No significant vascular congestion. Opacity in retrocardiac left lower lobe, likely atelectasis.
CT Scan: CHEST/TAVR 12/07/24- The central airways are patent. There is no bronchiectasis. There is minimal bibasilar bronchial wall thickening. There is linear subsegmental atelectasis within the lower lobes bilaterally. There is a 6 mm pleural-based
nodule within the posterior right lower lobe (series 601 image 408).
Echo: 12/30/24- Normal biventricular systolic function with no regional wall motion abnormalities. LVEF is 55-60% by visual inspection. Concentric hypertrophy of the left ventricle is present. Severe aortic stenosis of a calcified trileaflet valve
with mild regurgitation. Mild mitral regurgitation. Mild tricuspid regurgitation. Normal left atrial appendage. Grade III atheromatous disease of the arch and descending aorta. A small [id number] ASD/PFO is seen.
[facility] 11/25/24- CONCLUSIONS
1. coronary artery disease as described with moderate-severe ISR of previously placed LAD stents
2. mildly elevated biventricular filling pressures, normal pulmonary artery pressure, and normal cardiac output and index
PFT's: [place] 12/16/24: FEV1 3.02L 105%, FVC 4.23L 111%, ratio 71 (normal)
Reports and relevant images were personally reviewed.
Critical Care time 35 mins -- The patient is admitted for acute critical illness for the treatment of vital organ failure and/or prevention of further life-threatening conditions. Total care includes time spent in review of history, physical exam,
medications, hemodynamic/ventilator parameters, laboratory data, imaging and discussion with house staff, pharmacy, respiratory therapy, brand recorder, and nursing.
Subjective Dataa
Subjective Data
Date of Service:
Date of Service: December 31, 2024
Chief Complaint: [employer] Follow Up
Subjective:
No acute events ON, extubated and doing well
C/o pain, no SOB
Objective Data
Data Reviewed
Vital Signs / I&O / Oxygen:
Vital Signs
Temp Pulse Resp BP Pulse Ox
99.1 F 73 18 142/67 97
12/31/24 12:00 12/31/24 12:01 12/31/24 12:00 12/31/24 12:01 12/31/24 12:00
Intake and Output
12/30/24 12/31/24 01/01/25
06:59 06:59 06:59
Intake Total 1461.7 / 1474.0 82.6 / 82.6
Output Total 1570 / 1610 210 / 210
Balance -108.3 / -136.0 -127.4 / -127.4
SaO2 [CPAP] 98
SaO2 [SIMV] 99
SaO2 97
Nasal Cannula flow liters per 2
minute
Physical Exam
General: Comfortable, Pain and Other (NAD)
HEENT: Normocephalic, Anicteric and Moist Mucous Membranes
Cardiovascular: S1-S2 and Regular Rhythm
Respiratory: Clear, Non-Labored Respirations and Chest Tube
GI: Soft, Non Distended and Non Tender
Neurology: Awake, Alert, Oriented and No Motor Deficits
Skin: Warm, Dry and Good Color
Labs/Micro/Reports
Lab Data
12/31/24 02:30
12/31/24 02:30
Laboratory Results
12/30/24 12/30/24
14:34 16:49
PT 18.3 H
INR 1.47
APTT 32.7
pH 7.31 L Cancelled
pCO2 31 L Cancelled
pO2 89 Cancelled
HCO3 15.6 L* Cancelled
O2 Delivery Level Cancelled
[2024-12-31 13:05] LABS: Glucose - Point of Care 117 mg/dl (70-99)
--- NOTE | 2024-12-31 13:35 | PTCARENOTE ---
pt states has no urge to void, pt bladder scanned for 298ml.
[2024-12-31 14:07] LABS: Glucose - Point of Care 165 mg/dl (70-99)
--- NOTE | 2024-12-31 15:54 | PTCARENOTE ---
pt VS completed, pt placed back to bed. pt states no urge to void, attempted w/ no success. chest tube dressing changed. pt family brought own CPAP from home.
[2024-12-31 15:57] LABS: Glucose - Point of Care 128 mg/dl (70-99)
[2024-12-31] MEDS: ROXICODONE 2.5 MG PO (16:00)
[2024-12-31 17:06] LABS: Glucose - Point of Care 107 mg/dl (70-99)
[2024-12-31 17:58] LABS: Glucose - Point of Care 94 mg/dl (70-99)
[2024-12-31] MEDS: NOVOLIN R INSULIN INFUSION 100 IV (17:58)
--- NOTE | 2024-12-31 18:23 | PTCARENOTE ---
pt voided in urinal. no c/o pain.
[2024-12-31 20:20] LABS: Glucose - Point of Care 115 mg/dl (70-99)
[2024-12-31] MEDS: ROXICODONE 5 MG PO (20:26)
--- NOTE | 2024-12-31 21:00 | PTCARENOTE ---
Assumed care of pt from dayshift RN. Walking rounds completed. Pt is oriented to person, place, and time. Pt is SR w/ PVCs on the tele monitor. HR 70s. Temporary epicardial v-wire intact and set to backup . BP stable. Palpable pulses
throughout. +1 generalized edema. Pt is 97% on 2L NC. Lung sounds diminished B/L. Mediastinal CTx2 and R/L pleural CT to -20 suction, no airleak noted at this time, and output WNL. Deep breathing and IS encouraged. Abdomen round. +BS. Pt voided x1
post Jeong removal for previous shift. No nausea. All surgical sites stable. Right IJ cordis and PIV x1 intact. Pt assisted out of the chair and into bed w/ assist x2. See MAR for pain medication administration. Glycemic protocol followed. See
worklist for full nursing assessment and interventions. Call cornelius within reach.
[2024-12-31] MEDS: LIPITOR 40 MG PO (21:41)
[2024-12-31 22:21] LABS: Glucose - Point of Care 102 mg/dl (70-99)
[2025-01-01] VITALS (22 sets, daily range): BP systolic 106–154; BP diastolic 53–86; PULSE 73; O2SAT 95; BMI 35.9
[2025-01-01 00:12] LABS: Glucose - Point of Care 109 mg/dl (70-99)
--- NOTE | 2025-01-01 00:37 | PTCARENOTE ---
No acute change in assessment. Pt is SR w/ PVCs on the tele monitor. VSS. CTx4 assessment unchanged. All surgical sites stable. Pt wearing home CPAP machine. Pt states pain is controlled at this time. Call cornelius within reach.
[2025-01-01 02:16] LABS: Glucose - Point of Care 108 mg/dl (70-99)
[2025-01-01 04:23] LABS: Glucose - Point of Care 108 mg/dl (70-99)
[2025-01-01] MEDS: ROXICODONE 5 MG PO (04:23)
[2025-01-01 04:24] LABS: Ionized Calcium 1.13 mMOL/L (1.15-1.33)
--- NOTE | 2025-01-01 04:40 | PTCARENOTE ---
Pt reassessed. SR w/ PVCs on the tele monitor. HR 70s. BP stable. Pt using home CPAP machine. POX 94-100%. CTx4 assessment unchanged. All surgical sites stable. Pt repositioned in bed. Labs sent. Glycemic protocol followed. Call cornelius within reach.
See MAR for pain medication administration.
[2025-01-01 04:43] LABS: Hematocrit 21.8 % (39.0-52.0); Hemoglobin 7.7 g/dL (13.0-18.0); Mean Corp Hgb Conc. 35.3 g/dL (33.0-37.0); Mean Corpuscular Hgb 33.2 pg (27.0-31.0); Mean Platelet Volume 9.9 fL (7.4-10.4); Platelet Count 109 10^3/uL (130-400); Red Blood Cell Count 2.32 10^6/uL (4.70-6.10); Red Cell Dist. Width 14.5 % (11.5-14.5); White Blood Cell Count 13.3 10^3/uL (4.8-10.8)
[2025-01-01 04:55] LABS: Blood Urea Nitrogen 30 mg/dl (9-20); Calcium 8.1 mg/dl (8.4-10.2); Carbon Dioxide 28 mmol/L (22-30); Chloride 103 mmol/L (98-107); Estimated Creatinine Clearance 86 ml/min; Glucose 95 mg/dl (70-99); Magnesium 2.7 mg/dl (1.6-2.3); Potassium 4.1 mmol/L (3.5-5.1); Sodium 135 mmol/L (135-145); eGFR > 60.00
[2025-01-01] MEDS: CALCIUM GLUCONATE 130 MG IV (05:10)
[2025-01-01] MEDS: TYLENOL 1000 MG PO ×3 (05:10→23:37)
--- NOTE | 2025-01-01 05:14 | W.PN.CT ---
Addendum entered and electronically signed by Colton Coleman MD 01/01/25 09:19:
I saw and examined the patient.
The PA's note was reviewed and I agree with the note.
Comment:
POD#2 s/p AVR, CABG x 2, ELAA
No major overnight events.
Diuresis today
D/C CTs
OOB/IS/ambulate
Transit off insulin
D/C planning for 2 days
Original Note:
Today's Communication / Plan
-
Plan
-No major issues overnight. Hemodynamically and neurologically intact
-Off all drips but insulin
-BP has been soft postop, tolerating resumption of BB
-H/H 7.8/22.2, monitor for possible transfusion
-Consider D/C chest tubes: 2 meds 65/250, R/L pleurals 75/265
-Tele phase today when off insulin gtt
-Diabetes education management f/u
-Mag oxide on hold, mg 2.7
-Cont. current meds (ASA, Plavix, Toprol XL, Amiodarone, Lipitor)
-Encourage use of IS
-OOB into chair/Ambulate
Assessment / Plan
-
s/p CABG x 2 (KIRSTIN to LAD, GSV to D1), AVR with a 25mm Inspiris Resilia, and ELAA wiht a 45mm AtriClip POD#2
- Coronary artery disease status post PCI of LAD
- Severe aortic stenosis (P/M 66/36, LOS 1.3)
- b/l carotid artery stenosis with known chronic total occlusion of
left internal carotid artery
- History of transient ischemic attack/cerebrovascular accident, no residual defects.
- Non insulin-dependent diabetes mellitus.
- Morbid obesity (body mass index 35.0).
- Obstructive sleep apnea on CPAP.
- Hypertension.
- HLD
- acute blood loss anemia requiring transfusion
-Acute postop thrombocytopenia
-Acute postop atelectasis
-Acute postop hypovolemia with subsequent hypervolemia
Discussed patient care with: Cardiology, Nursing, Respiratory Therapy, Pharmacy and Care Team
Subjective
Procedure
s/p CABG x 2 (KIRSTIN to LAD, GSV to D1), AVR with a 25mm Inspiris Resilia, and ELAA wiht a 45mm AtriClip on 12/30/[address] Coleman.
-
Date of Service: January 01, 2025
Pt c/o mild incisional pain, otherwise feel well
Objective Data
-
Lab Results
01/01/25 04:16
PT 18.3 Sec (11.4-14.6) H 12/30/24 14:34
INR 1.47 12/30/24 14:34
APTT 32.7 Sec (23.4-35.0) 12/30/24 14:34
Vital Signs
Vital Signs
Temp Pulse Resp BP Pulse Ox
98.4 F 75 22 123/64 94
01/01/25 04:00 01/01/25 05:00 01/01/25 05:00 01/01/25 05:00 01/01/25 05:00
CT Intake/Output/Weight
12/31/24 12/31/24 01/01/25
06:59 18:59 06:59
Intake Total 737.4 / 1474.0 169.9 / 306.9 137.0 / 306.9
Output Total 890 / 1610 575 / 1165 590 / 1165
Balance -152.6 / -136.0 -405.1 / -858.1 -453.0 / -858.1
SaO2: 94 (RA)
Physical Exam
-
General: Awake, Oriented and AOx3
Cardiovascular: Regular rate & rhythm, No Murmurs, No Rub and No Gallop
Respiratory: Decreased Breath Sounds
Sternum: Stable
Incision: Clean, Dry, Intact and Dressing Intact
Extremities: Other (+trace edema)
Data Reviewed
-
Lab Results: Results Reviewed
Medications: Active Meds Reviewed
Chest X-Ray: Report Reviewed and Image Reviewed
ECG: Report Reviewed and Image Reviewed
[2025-01-01] MEDS: NSS 500 IV (05:26)
[2025-01-01 05:41] LABS: Hematocrit 22.2 % (39.0-52.0); Hemoglobin 7.8 g/dL (13.0-18.0); Mean Corp Hgb Conc. 35.1 g/dL (33.0-37.0); Mean Corpuscular Hgb 32.5 pg (27.0-31.0); Mean Corpuscular Volume 92.5 fL (80.0-94.0); Mean Platelet Volume 9.6 fL (7.4-10.4); Platelet Count 112 10^3/uL (130-400); Red Cell Dist. Width 14.5 % (11.5-14.5); White Blood Cell Count 14.3 10^3/uL (4.8-10.8)
[2025-01-01 06:04] LABS: Glucose - Point of Care 105 mg/dl (70-99)
[2025-01-01] MEDS: TORADOL 15 MG IV (06:29)
--- NOTE | 2025-01-01 07:37 | W.PN.INTV ---
Today's Communication / Plan
Recommendations
Doing well, off pressors/gtts
Stable on RA, no new complaints
Reviewed OP FU for nodule, info left in chart
Transfer process initiated to [facility], we will sign off upon transfer
Assessment
-
Patient is a 74-year-old male with previous history of CAD status post stent 2012, hypertension, hyperlipidemia, diabetes with history of severe and recent [facility] with significant in-stent restenosis of LAD. Underwent outpatient TAVR workup and
presented today for elective procedure to address both conditions. Underwent CABG x 2 with AVR 12/30 and postoperatively transferred to CVICU on mechanical ventilation.
Severe s/p AVR 12/30
ISR of LAD s/p CAB x 2 12/30
Perioperative mechanical ventilation
Postop anemia, thrombocytopenia
Hyperglycemia
Conditions present prior to admission
CAD status post stent x 3 to LAD in 2012
Diabetes
Hypertension
Hyperlipidemia
Obesity
TIAs
Bilateral carotid artery stenosis
ELÍAS on CPAP
Anal fissure
Left foot neuroma
Left knee tendon repair
Pulmonary nodule, 6mm
Plan
S/p CAB x 2, AVR POD #2
Titrated off pressors per protocol
ECHO reviewed with normal function
PA catheter discontinued
Management of chest tubes per primary service
Pain control
RASS goal of 0 to -1
Intubated for procedure, extubated 12/30 and doing well
ABG(s) reviewed/alkalotic, likely overbreathing
CXR with stable postop changes
Extubated per protocol
Maintain supplement oxygen as needed, currently stable on RA
Prior history of pulmonary disease-- ELÍAS on CPAP
Can resume PAP post extubation
Prior PFTs reviewed--normal function
Does have incidental nodule on CT, will need to follow as OP, will place info in chart--reviewed with patient
Can add nebulizers if needed
Aspiration precautions
Encouraged incentive spirometry, OOB/ambulation/early mobility
Advance diet as tolerated following extubation
GI prophylaxis if indicated for mechanical ventilation >48 hours
Monitor critical I/O's
Jeong/chest tube output
Hb/platelets postoperatively stable
Trend CBC for now
Can transfuse if indicated for Hb <7, plt <50 in surgical patients
DVT prophylaxis including SCDs
Insulin protocol initiated
Transitioned to SQ/off as indicated per team
Diagnostic Data
Chest X-Ray: 12/30/24- Support lines and tubes in place. No pneumothorax identified on this supine examination. No significant vascular congestion. Opacity in retrocardiac left lower lobe, likely atelectasis.
CT Scan: CHEST/TAVR 12/07/24- The central airways are patent. There is no bronchiectasis. There is minimal bibasilar bronchial wall thickening. There is linear subsegmental atelectasis within the lower lobes bilaterally. There is a 6 mm pleural-based
nodule within the posterior right lower lobe (series 601 image 408).
Echo: 12/30/24- Normal biventricular systolic function with no regional wall motion abnormalities. LVEF is 55-60% by visual inspection. Concentric hypertrophy of the left ventricle is present. Severe aortic stenosis of a calcified trileaflet valve
with mild regurgitation. Mild mitral regurgitation. Mild tricuspid regurgitation. Normal left atrial appendage. Grade III atheromatous disease of the arch and descending aorta. A small [id number] ASD/PFO is seen.
[facility] 11/25/24- CONCLUSIONS
1. coronary artery disease as described with moderate-severe ISR of previously placed LAD stents
2. mildly elevated biventricular filling pressures, normal pulmonary artery pressure, and normal cardiac output and index
PFT's: Tashi 12/16/24: FEV1 3.02L 105%, FVC 4.23L 111%, ratio 71 (normal)
Reports and relevant images were personally reviewed.
Critical Care time 31 mins -- The patient is admitted for acute critical illness for the treatment of vital organ failure and/or prevention of further life-threatening conditions. Total care includes time spent in review of history, physical exam,
medications, hemodynamic/ventilator parameters, laboratory data, imaging and discussion with house staff, pharmacy, respiratory therapy, stretcher drier operator, and nursing.
Subjective Dataa
Subjective Data
Date of Service:
Date of Service: January 01, 2025
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
Subjective:
No events ON, remains stable
Off pressors
No new complaints
Objective Data
Data Reviewed
Vital Signs / I&O / Oxygen:
Vital Signs
Temp Pulse Resp BP Pulse Ox
98.4 F 74 20 132/60 92
01/01/25 04:00 01/01/25 06:01 01/01/25 06:00 01/01/25 06:01 01/01/25 06:01
Intake and Output
12/31/24 01/01/25 01/02/25
06:59 06:59 06:59
Intake Total 1461.7 / 1474.0 319.9 / 319.9
Output Total 1570 / 1610 1225 / 1225
Balance -108.3 / -136.0 -905.1 / -905.1
SaO2 [CPAP] 98
SaO2 [SIMV] 99
SaO2 92
Nasal Cannula flow liters per 2
minute
Physical Exam
General: Comfortable, Pain and Other (NAD)
HEENT: Normocephalic, Anicteric and Moist Mucous Membranes
Cardiovascular: S1-S2 and Regular Rhythm
Respiratory: Clear, Non-Labored Respirations and Chest Tube
GI: Soft, Non Distended and Non Tender
Neurology: Awake, Alert, Oriented and No Motor Deficits
Skin: Warm, Dry and Good Color
Labs/Micro/Reports
Lab Data
01/01/25 05:21
01/01/25 04:16
--- NOTE | 2025-01-01 08:01 | W.PN.CD ---
Today's Communication / Plan
-
BP stable, weight up.
Furosemide 40 mg IV x1.
Incentive spirometry.
Ambulate.
Balance electrolytes (calcium).
Monitor H/H. Transfuse if no improvement with diuresis.
Impression / Plan
-
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
#Aortic stenosis
-Chronic, progressive.
-S/P #25 Shankar Inspiris Resilia SAVR with Dr. Coleman, 12/30/2024.
-Post-op EKG SR with LBBB (previously IC LBBB), follow telemetry.
-Routine post operative management.
-Incentive spirometry.
-Ambulate.
-Pain/chest tube management per CT surgery.
-Continue amiodarone, aspirin, atorvastatin, clopidogrel, metoprolol.
-Furosemide 40 mg IV x1 and monitor response.
-Keep K > 4, Mg > 2, Ca > 8, PO4 > 2.5.
#Anemia
-Acute, post op.
-Expected. Received 2 units PRBC's in OR.
-There is a component of dilution.
-Monitor H/H with diuresis. If Hb remains low in spite of diuresis, I would favor transfusion to a goal H/H > 8/24.
#CAD
-Chronic, progressive.
-S/P CABG x2 (REID to LAD, SVG to D1) with Dr. Coleman, 12/30/2024.
-Post operative management as above.
-Secondary prevention with high dose, high potency statin.
#HTN
-Chronic, stable.
-Monitor post-op.
-Re-introduce antihypertensive medications as indicated.
#HLD
-Chronic, stable.
-Continue high dose, high potency statin.
-Goal LDL < 55.
#NIDDM
-Chronic, stable.
-Post op insulin per protocol.
-Resume metformin.
Critical Care Time = 40 minutes.
Subjective/Interval History:
Weight up an additional 0.9 kg, now 2.6 kg over baseline.
Hbg stable at 7.8.
iCa = 1.13
Feels well.
DATA:
PFT's, 12/16/2024:
FEV1/FVC Ratio of 71%.
FEV1 was 3.02L or 105% of predicted.
FVC was 4.23L or 111% of predicted.
The flow volume curve is normal.
Intraprocedural JUAN CARLOS, 12/30/2024:
CONCLUSIONS
Normal biventricular systolic function with no regional wall motion
abnormalities. LVEF is 55-60% by visual inspection. Concentric hypertrophy of
the left ventricle is present.
Severe aortic stenosis of a calcified trileaflet valve with mild regurgitation.
Mild mitral regurgitation.
Mild tricuspid regurgitation.
Normal left atrial appendage.
Grade III atheromatous disease of the arch and descending aorta.
A small [id number] ASD/PFO is seen.
POST OPERATIVE FINDINGS
S/P AVR with size 25 bioprosthetic valve; CABG x 2: REID-LAD; SVG-D1, MATT
exclusion.
The bioprosthetic valve is well-seated with no paravalvular leak. The mean
gradient is 8 mmHg with an index of 2.5 L/min/meters sq. The left atrial
appendage is no longer visible with the absence of flow confirmed by color flow
Doppler. Otherwise unchanged exam.
CABG/AVR, 12/30/2024:
PROCEDURES:
1. Median sternotomy
2. Takedown of KIRSTIN (narrow pedicle)
3. Endoscopic harvest/prep of RLE GSV
4. CABG x 2 (KIRSTIN to LAD, GSV to D1)
5. ELAA (45mm AtriClip)
6. AVR (#25 Inspiris Resilia)
Cardiac Catheterization, 11/25/2024:
CORONARY ANGIOGRAPHY
Dominance: right
LM: Large long vessel with mild ostial stenosis
LAD: Large vessel giving rise to a large early rising D1. There are overlapping stents from the proximal to mid/distal LAD. There is diffuse mild ISR as well as two focal areas of moderate/severe ISR in the proximal and mid LAD with GEOVANNA-3 flow
distally. The diagonal has a focal 70% stenosis in the proximal aspect of the vessel and otherwise diffuse mild disease.
LCx: Moderate caliber vessel giving rise to a small high rising OM1, moderate caliber bifurcating OM2, and small LPL branch. There is mild nonobstructive disease
RCA: Large vessel giving rise to a moderate caliber RPDA, large RPL1, and moderate caliber RPL2. There is diffuse, mild nonobstructive disease throughout the vessel. There is a 40% stenosis at the ostium.
Physical Exam
Vital Signs/Labs
Vital Signs
Temp Pulse Resp BP Pulse Ox
36.9 C 74 20 132/60 92
01/01/25 04:00 01/01/25 06:01 01/01/25 06:00 01/01/25 06:01 01/01/25 06:01
12/30/24 12/31/24 01/01/25
11:59 11:59 11:59
Actual Weight 117.2 kg 118.9 kg 119.8 kg
01/01/25 05:21
01/01/25 04:16
PT 18.3 Sec (11.4-14.6) H 12/30/24 14:34
INR 1.47 12/30/24 14:34
APTT 32.7 Sec (23.4-35.0) 12/30/24 14:34
Magnesium 2.7 mg/dl (1.6-2.3) H 01/01/25 04:16
Physical Exam
Constitutional: No acute distress and Comfortable
EENT: Anicteric and Moist mucous membranes
Cardiovascular: Rhythm & rate is regular, JVD pressure is normal, Pedal edema present, S1S2 is normal and Rub present
Respiratory: Respiratory effort normal and Other (Decreased in the bases.)
GI: Soft, Distention absent, Flat, Non tender and Normal bowel sounds
Neuro/Psych: AO x 3
Data Reviewed
-
Date of Service: January 01, 2025
Medical Decision Making: Reviewed Test Results, Independent Historian Assessment and Test Interpretation
EKG: Tracing Personally Visualized and interpreted and Report Reviewed by me
Echo: Report Reviewed by me
X-Ray/CT/US/MRI/NUC/PET: Image Personally Visualized and interpreted and Report Reviewed by me
Medical Tests (PFT, Pathology etc): Report Reviewed by me
Labs: Labs Reviewed by me
Old Records: Reviewed
[2025-01-01 08:12] LABS: Glucose - Point of Care 100 mg/dl (70-99)
[2025-01-01] MEDS: PLAVIX 75 MG PO (08:51)
[2025-01-01] MEDS: TOPROL XL 12.5 MG PO ×2 (08:51→20:45)
[2025-01-01] MEDS: NEURONTIN 100 MG PO ×3 (08:51→23:36)
[2025-01-01] MEDS: LASIX 40 MG IV (08:51)
[2025-01-01] MEDS: PROTONIX 40 MG PO (08:51)
[2025-01-01] MEDS: LIDOCAINE 4% PATCH 1 PATCH TOPICAL (08:51)
[2025-01-01] MEDS: THERAGRAN 1 TABLET PO (08:51)
[2025-01-01] MEDS: PACERONE 200 MG PO ×3 (08:51→23:36)
[2025-01-01] MEDS: SENOKOT-S 1 TABLET PO ×2 (08:51→20:45)
[2025-01-01] MEDS: LOW STRENGTH ASPIRIN 81 MG PO (08:52)
[2025-01-01] MEDS: BACTROBAN 2% OINTMENT 1 APPLIC NASAL ×2 (08:52→20:44)
--- NOTE | 2025-01-01 09:00 | PTCARENOTE ---
Assumed care of patient. Walking rounds completed with previous RN. Pt assessed while he was lying in bed. Pt alert and oriented x4. Denies pain, shortness of breath, and nausea. FISHER with equal strength throughout. 2 assist to get OOB to the chair.
NSR with frequent PVCs on tele with rates in the 70s. BP 115/59. +Rub. Bilateral radial pulses palpable. Bilateral DP pulses weakly palpable. Generalized +2 edema. POX 98% on 2L NC, titrated to RA, POX 94%. Lungs diminished in the bases. IS
encouraged-1500mL achieved. No cough noted. Mediastinal chest tubes x2 y-sited to 1 atrium to -20cm suction draining serosanguinous fluid. right and left pleural chest tubes y-sited to 1 atrium to -20cm suction draining serosanguinous fluid. No air
leaks, tidaling, crepitus noted. Epicardial v-wire insulated. Abdomen soft, round, nontender, obese. Hypoactive BS. Pt voiding adequate amounts of anahy urine in the urinal. Sternal incision with antibacterial dressing CDI. CT dressing CDI. Right
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 Right SVG harvest approximated, EXPERIMENTAL FLIGHT TEST MECHANIC. Old TERESA site with 4x4 CDI. Right IJ cordis infusing NSS KVO. Left forearm 20g PIV intact infusing insulin gtt per Critical Care Glycemic Protocol. See MAR for medication
administration. See worklist for complete nursing assessment. Plan of care reviewed and pt in agreement.
[2025-01-01 09:07] LABS: Glucose - Point of Care 109 mg/dl (70-99)
[2025-01-01] MEDS: NOVOLOG FLEXPEN 4 UNITS SC (10:01)
[2025-01-01 11:26] LABS: Glucose - Point of Care 125 mg/dl (70-99)
[2025-01-01 11:26] LABS: Glucose - Point of Care 143 mg/dl (70-99)
--- NOTE | 2025-01-01 11:30 | PTCARENOTE ---
Pt worked with cardiac rehab. Pt assisted back to bed. 4 chest tubes d/c per orders. approximated, sutures intact. dressing applied. Insulin gtt d/c per orders. No other acute changes from previous assessment.
[2025-01-01 12:57] LABS: Glucose - Point of Care 128 mg/dl (70-99)
[2025-01-01] MEDS: NOVOLOG FLEXPEN-MODERATE RESISTANCE SC ×2 (13:06→18:39)
--- NOTE | 2025-01-01 16:15 | PTCARENOTE ---
Pt reassessed. SR with PVCs on tele with rates in the 80s. BP 116/58. POX 92%on RA. Ambulated with 2 assist and rolling walker in the maldonado. Tolerated. No other acute changes from previous assessment.
[2025-01-01 18:38] LABS: Glucose - Point of Care 144 mg/dl (70-99)
[2025-01-01] MEDS: GLUCOPHAGE 500 MG PO (18:39)
--- NOTE | 2025-01-01 20:45 | PTCARENOTE ---
Report received from ROBIN Mcclure. Walking rounds done. Pt awake,alert, oriented x 4. Sitting in chair. C/O lower abdominal, cramping, bloated pain. Helped to BR with 2 RNs and rolling walker. Pt had small, soft-loose, brown BM. Pt helped back to
bed. Pt on room air. Sats 94-95%. BBS present. Decreased to B bases. CDB and IS encouraged. Audible heart tones. + pericardial rub. Pt in SR. Normotensive. For pulse and wound assessments, see flowsheets. V wire insulated to chest. Urine clear,
yellow. Voids in toilet. ACHS. Will check evening blood glucose. Ongoing plan of care.
--- NOTE | 2025-01-01 23:00 | PTCARENOTE ---
Pt helped to BR with 2 RN assist and rolling walker to have large, soft-loose, brown BM. Pt helped back to bed. Remains in SR. CPAP applied with 2L/O2. Sats 94-96%.
[2025-01-01] MEDS: LIPITOR 40 MG PO (23:36)
[2025-01-02] VITALS (15 sets, daily range): BP systolic 122–160; BP diastolic 61–86; BMI 36.0
[2025-01-02 00:11] LABS: Glucose - Point of Care 203 mg/dl (70-99)
--- NOTE | 2025-01-02 01:30 | PTCARENOTE ---
Pt helped to BR to have small, loose BM and void small amount of clear, yellow urine. Evening blood glucose 203. PA notified. VS done. Pt attempting to go to sleep. Remains in SR. Home CPAP with 2L/O2 applied. Sats 93-95%.
--- NOTE | 2025-01-02 03:08 | W.PN.CT ---
Addendum entered and electronically signed by Colton Coleman MD 01/02/25 09:42:
I saw and examined the patient.
The PA's note was reviewed and I agree with the note.
Comment:
POD#3 s/p AVR & CABG x 2; ELAA
Transfused 1U PRBC for Hgb 6.9. - Check repeat Hgb at noon; likely combination of acute perioperative blood loss anemia coupled w/ hemodilution secondary to IVF
2-hours of rate-controlled AF (70-90s) - given IV lopressor x 2 doses; will start amiodarone protocol gtt/this AM - back in sinus currently @ 71bpm
Maintain cordis today
OOB/IS/ambulate later
D/C planning for 1-2 days
Original Note:
Today's Communication / Plan
-
Plan
-No major issues overnight. Hemodynamically and neurologically intact
-Unfortunately went into rate controlled a-fib (70-90's) @ 0250 while asleep, his 2L of 02 was noted to be off on his CPAP at the time
-Converted to NSR @ 0254 after 2 doses of 2.5 mg IV Lopressor, no conversion pause noted. Temporary pacer was reconnected to box and @ VVI of 45 bpm
-BP has been soft postop, improved and tolerating resumption of BB
-H/H 7.8/22.2-> 6.9/19.8. Receiving 1u PRBC, will give Lasix after
-Maintain cordis another day, pt is a difficult stick for IV access/phlebotomy
-Diabetes education management f/u
-Mag oxide on hold, mg 2.7->2.3
-Cont. current meds (ASA, Plavix, Toprol XL, Amiodarone, Lipitor)
-Encourage use of IS
-OOB into chair/Ambulate
-Home likely tomorrow
Assessment / Plan
-
s/p CABG x 2 (KIRSTIN to LAD, GSV to D1), AVR with a 25mm Inspiris Resilia, and ELAA wiht a 45mm AtriClip POD#3
- Coronary artery disease status post PCI of LAD
- Severe aortic stenosis (P/M 66/36, LOS 1.3)
- b/l carotid artery stenosis with known chronic total occlusion of
left internal carotid artery
- History of transient ischemic attack/cerebrovascular accident, no residual defects.
- Non insulin-dependent diabetes mellitus.
- Morbid obesity (body mass index 35.0).
- Obstructive sleep apnea on CPAP.
- Hypertension.
- HLD
- acute blood loss anemia requiring transfusion
-Acute postop thrombocytopenia
-Acute postop atelectasis
-Acute postop hypovolemia with subsequent hypervolemia
-Acute postop rate controlled a-fib
Discussed patient care with: Cardiology, Nursing, Respiratory Therapy, Pharmacy and Care Team
Subjective
Procedure
s/p CABG x 2 (KIRSTIN to LAD, GSV to D1), AVR with a 25mm Inspiris Resilia, and ELAA wiht a 45mm AtriClip on 12/30/[address] Coleman.
-
Date of Service: January 02, 2025
Pt c/o mild incisional pain, otherwise feels well
Objective Data
-
PT 18.3 Sec (11.4-14.6) H 12/30/24 14:34
INR 1.47 12/30/24 14:34
APTT 32.7 Sec (23.4-35.0) 12/30/24 14:34
Vital Signs
Vital Signs
Temp Pulse Resp BP Pulse Ox
99.1 F 71 16 130/78 96
01/01/25 20:00 01/01/25 23:36 01/01/25 20:00 01/01/25 23:36 01/01/25 23:35
CT Intake/Output/Weight
01/01/25 01/01/25 01/02/25
06:59 18:59 06:59
Intake Total 150.0 / 332.9 117.6 / 177.6 60 / 177.6
Output Total 650 / 1225 1610 / 1610
Balance -500.0 / -892.1 -1492.4 / -1432.4 60 / -1432.4
SaO2: 96 (2L)
Physical Exam
-
General: Awake, Oriented and AOx3
Cardiovascular: Irregular rate & rhythm, No Murmurs, No Rub and No Gallop
Respiratory: Decreased Breath Sounds (at bases, otherwise clear)
Sternum: Stable
Incision: Clean, Dry, Intact and Dressing Intact
Extremities: Other (+trace edema )
Data Reviewed
-
Lab Results: Results Reviewed
Medications: Active Meds Reviewed
Chest X-Ray: Report Reviewed and Image Reviewed
ECG: Report Reviewed and Image Reviewed
[2025-01-02] MEDS: LOPRESSOR 2.5 MG IV ×2 (03:26→04:29)
--- NOTE | 2025-01-02 03:30 | PTCARENOTE ---
Pt went into AF at 0243. Rate 26372's. BP 160/80. Pt denies pain. PA notified and at bedside. Labs drawn and sent. Metoprolol 2.5 mg IV given. BP 130-150's systolic throughout administration on metoprolol. V wire attached to temp pacer. Settings:
rate 50, mA 10, sens 2, by PA. Pt now with cramping lower abdominal pain at times. States it is similar to when he had to have BMs earlier in shift. No other c/o pain.
--- NOTE | 2025-01-02 03:53 | PTCARENOTE ---
Back up rate of temp PM decreased to 45 bpm, mA 10, sens 2, per PA.
[2025-01-02 04:05] LABS: Hematocrit 19.8 % (39.0-52.0); Hemoglobin 6.9 g/dL (13.0-18.0); Mean Corp Hgb Conc. 34.8 g/dL (33.0-37.0); Mean Corpuscular Hgb 32.9 pg (27.0-31.0); Mean Corpuscular Volume 94.3 fL (80.0-94.0); Mean Platelet Volume 9.8 fL (7.4-10.4); Platelet Count 114 10^3/uL (130-400); Red Cell Dist. Width 13.9 % (11.5-14.5); White Blood Cell Count 12.5 10^3/uL (4.8-10.8)
[2025-01-02 04:12] LABS: Blood Urea Nitrogen 29 mg/dl (9-20); Calcium 8.4 mg/dl (8.4-10.2); Carbon Dioxide 26 mmol/L (22-30); Chloride 103 mmol/L (98-107); Estimated Creatinine Clearance 87 ml/min; Glucose 168 mg/dl (70-99); Magnesium 2.3 mg/dl (1.6-2.3); Potassium 4.2 mmol/L (3.5-5.1); Sodium 134 mmol/L (135-145); eGFR > 60.00
--- NOTE | 2025-01-02 04:39 | PTCARENOTE ---
Pt given bedpan to have small amount liquid stool. Heme negative. Criticial H&H called from lab. PA notified. To redraw T&S. Lopresir 2.5, additional dose, given as ordered. VS taken. See flowsheet.
--- NOTE | 2025-01-02 06:24 | PTCARENOTE ---
One unit PRBC started on blood warmer at 0620 after 2 RN verifications. VS per protocol. See flowsheet.
[2025-01-02] MEDS: TYLENOL 1000 MG PO ×3 (06:27→23:02)
--- NOTE | 2025-01-02 08:45 | PTCARENOTE ---
Assumed care of patient at 0700. Pt is awake, alert, and oriented. 1 unit of blood finished infusing. Plan for 40mg IV Lasix. Pt remains SR with HR 60's. BP 147/75 MAP 95. Pulse oximetry 94% on room air. Pt with complaints of abdominal cramping and
diarrhea. Pt states his appetite is poor this morning due to abdominal discomfort. Pt voiding without issue. Midsternal incision post-op dressing intact. Right groin puncture and right leg incision approximated and DOTTIE. Right IJ cordis remains in
place with KVO. Pt currently OOB in chair with call cornelius within reach.
[2025-01-02] MEDS: PLAVIX 75 MG PO (09:11)
[2025-01-02] MEDS: LASIX 40 MG IV (09:11)
[2025-01-02] MEDS: TOPROL XL 12.5 MG PO ×2 (09:11→20:03)
[2025-01-02] MEDS: PROTONIX 40 MG PO (09:11)
[2025-01-02] MEDS: GLUCOPHAGE 500 MG PO ×2 (09:11→17:15)
[2025-01-02] MEDS: PACERONE 200 MG PO ×2 (09:11→15:55)
[2025-01-02] MEDS: THERAGRAN 1 TABLET PO (09:11)
[2025-01-02] MEDS: LOW STRENGTH ASPIRIN 81 MG PO (09:12)
[2025-01-02] MEDS: NEURONTIN 100 MG PO ×3 (09:12→23:01)
[2025-01-02] MEDS: LIDOCAINE 4% PATCH TOPICAL (09:12)
[2025-01-02] MEDS: BACTROBAN 2% OINTMENT 1 APPLIC NASAL ×2 (09:12→20:03)
[2025-01-02] MEDS: SENOKOT-S PO (09:13)
[2025-01-02] MEDS: KCL 20 MEQ PO (09:16)
[2025-01-02 09:19] LABS: Glucose - Point of Care 173 mg/dl (70-99)
[2025-01-02] MEDS: NOVOLOG FLEXPEN-MODERATE RESISTANCE 1 UNITS SC ×3 (09:19→17:15)
[2025-01-02] MEDS: CORDARONE 518 MG IV (10:15)
--- NOTE | 2025-01-02 11:24 | W.PN.CD ---
Today's Communication / Plan
-
Agree with IV Lasix, addition dose in the pm if not negative
monitor for recurrent AF
Impression / Plan
-
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
#Aortic stenosis
-Chronic, progressive.
-S/P #25 Shankar Inspiris Resilia SAVR with Dr. Coleman, 12/30/2024.
-Post-op EKG SR with LBBB (previously IC LBBB), follow telemetry.
-Routine post operative management.
-Incentive spirometry.
-Ambulate.
-Pain/chest tube management per CT surgery.
-Continue amiodarone, aspirin, atorvastatin, clopidogrel, metoprolol.
-WT up 7lbs, would give additional IV lasix today
-if not negative 1-2 L would give another dose in the pm
-Keep K > 4, Mg > 2, Ca > 8, PO4 > 2.5.
#Anemia
-Acute, post op.
-Expected. Received 2 units PRBC's in OR.
-There is a component of dilution.
-given another unti for Hgb
-favor goal H/H > 8/24.
#CAD
-Chronic, progressive.
-S/P CABG x2 (REID to LAD, SVG to D1) with Dr. Coleman, 12/30/2024.
-Post operative management as above.
-Secondary prevention with high dose, high potency statin.
#PAF:
-noted for 2 hours overnight
-if recurrs would consider DOAC
#HTN
-Chronic, stable.
-Monitor post-op.
-Re-introduce antihypertensive medications as indicated.
#HLD
-Chronic, stable.
-Continue high dose, high potency statin.
-Goal LDL < 55.
#NIDDM
-Chronic, stable.
-Post op insulin per protocol.
-Resume metformin.
Subjective/Interval History:
he is tire, sob. He has a lot of 'gas'
DATA:
PFT's, 12/16/2024:
FEV1/FVC Ratio of 71%.
FEV1 was 3.02L or 105% of predicted.
FVC was 4.23L or 111% of predicted.
The flow volume curve is normal.
Intraprocedural JUAN CARLOS, 12/30/2024:
CONCLUSIONS
Normal biventricular systolic function with no regional wall motion
abnormalities. LVEF is 55-60% by visual inspection. Concentric hypertrophy of
the left ventricle is present.
Severe aortic stenosis of a calcified trileaflet valve with mild regurgitation.
Mild mitral regurgitation.
Mild tricuspid regurgitation.
Normal left atrial appendage.
Grade III atheromatous disease of the arch and descending aorta.
A small [id number] ASD/PFO is seen.
POST OPERATIVE FINDINGS
S/P AVR with size 25 bioprosthetic valve; CABG x 2: REID-LAD; SVG-D1, MATT
exclusion.
The bioprosthetic valve is well-seated with no paravalvular leak. The mean
gradient is 8 mmHg with an index of 2.5 L/min/meters sq. The left atrial
appendage is no longer visible with the absence of flow confirmed by color flow
Doppler. Otherwise unchanged exam.
CABG/AVR, 12/30/2024:
PROCEDURES:
1. Median sternotomy
2. Takedown of KIRSTIN (narrow pedicle)
3. Endoscopic harvest/prep of RLE GSV
4. CABG x 2 (KIRSTIN to LAD, GSV to D1)
5. ELAA (45mm AtriClip)
6. AVR (#25 Inspiris Rexa)
Cardiac Catheterization, 11/25/2024:
CORONARY ANGIOGRAPHY
Dominance: right
LM: Large long vessel with mild ostial stenosis
LAD: Large vessel giving rise to a large early rising D1. There are overlapping stents from the proximal to mid/distal LAD. There is diffuse mild ISR as well as two focal areas of moderate/severe ISR in the proximal and mid LAD with GEOVANNA-3 flow
distally. The diagonal has a focal 70% stenosis in the proximal aspect of the vessel and otherwise diffuse mild disease.
LCx: Moderate caliber vessel giving rise to a small high rising OM1, moderate caliber bifurcating OM2, and small LPL branch. There is mild nonobstructive disease
RCA: Large vessel giving rise to a moderate caliber RPDA, large RPL1, and moderate caliber RPL2. There is diffuse, mild nonobstructive disease throughout the vessel. There is a 40% stenosis at the ostium.
Physical Exam
Vital Signs/Labs
Vital Signs
Temp Pulse Resp BP Pulse Ox
98.7 F 84 18 147/75 94
01/02/25 08:00 01/02/25 09:00 01/02/25 08:00 01/02/25 07:21 01/02/25 08:30
01/01/25 01/02/25 01/03/25
06:59 06:59 06:59
Actual Weight 264 lb 1.82 oz 265 lb 6.985 oz
01/02/25 03:24
PT 18.3 Sec (11.4-14.6) H 12/30/24 14:34
INR 1.47 12/30/24 14:34
APTT 32.7 Sec (23.4-35.0) 12/30/24 14:34
Magnesium 2.3 mg/dl (1.6-2.3) 01/02/25 03:24
Physical Exam
Constitutional: No acute distress
Cardiovascular: Rhythm & rate is regular, Systolic murmur absent, Diastolic murmur absent and Pedal edema present (1+ b/l )
Respiratory: Respiratory effort normal, Lungs clear to auscul., Wheeze Absent, Crackles Absent and Rhonchi Absent
Neuro/Psych: AO x 3
Data Reviewed
-
Date of Service: January 02, 2025
Medical Decision Making: Review of Case with other Provider (Dr Coleman, afib noted, CVICU nursing receiving IV Lasix)
EKG: Other ( or just okaybEvery daynsr pvc ~2 hours af overnight)
--- NOTE | 2025-01-02 12:30 | PTCARENOTE ---
Pt remains SR with HR 70's. BP 127/70 MAP 86. Pulse oximetry 98% on room air. Pt started on Amio gtt at 1mg/min. Pt ambulated in hallway with rolling walker and RN assistance, tolerated well.
[2025-01-02 12:46] LABS: Glucose - Point of Care 159 mg/dl (70-99)
[2025-01-02 14:51] LABS: Hematocrit 24.3 % (39.0-52.0); Hemoglobin 8.6 g/dL (13.0-18.0); Mean Corp Hgb Conc. 35.4 g/dL (33.0-37.0); Mean Corpuscular Hgb 32.5 pg (27.0-31.0); Mean Corpuscular Volume 91.7 fL (80.0-94.0); Mean Platelet Volume 9.6 fL (7.4-10.4); Platelet Count 120 10^3/uL (130-400); Red Blood Cell Count 2.65 10^6/uL (4.70-6.10); Red Cell Dist. Width 14.6 % (11.5-14.5); White Blood Cell Count 10.2 10^3/uL (4.8-10.8)
[2025-01-02] MEDS: NSS IV (15:48)
[2025-01-02] MEDS: LASIX 20 MG IV (15:55)
--- NOTE | 2025-01-02 16:00 | PTCARENOTE ---
Pt ambulated in hallway with walker and RN assistance, tolerated well. Pt remains SR with HR 70's. BP 147/73 MAP 93. Additional dose 20mg IV Lasix administered per order. Pt with multiple episodes of diarrhea today CT TELMA, Viky, made aware.
[2025-01-02 17:16] LABS: Glucose - Point of Care 198 mg/dl (70-99)
--- NOTE | 2025-01-02 19:45 | PTCARENOTE ---
Report received from ROBIN Ross. Walking rounds done. Pt awake, alert, oriented x 4. Speech clear. Equal strength x 4. Assisted to BR to have diarrhea/loose stool. Uses rolling walker. Pt then ambulated in maldonado with walker. Pt helped to BR again to
have loose, semi-formed stool-large amount. Pt then helped back to bed. BBS present. Room air sat 96%. Decreased to B bases. Audible heart tones. + rub . Pt in SR. Amiodarone gtt at 0.5 mg/min. Normotensive. For pulse and wound assessments, see
flowsheets. Belly large, obese. Hyperactive bs x 4. lower abdominal cramping intermittently, states it is better after BM. Voids clear, yellow murine in toilet. CHG bath done. Ongoing plan of care.
[2025-01-02] MEDS: LIPITOR 40 MG PO (23:01)
[2025-01-02] MEDS: PACERONE PO (23:02)
[2025-01-02 23:09] LABS: Glucose - Point of Care 147 mg/dl (70-99)
--- NOTE | 2025-01-02 23:45 | PTCARENOTE ---
Pt helped to BR to void and have BM. Helped back to bed. VS done. Scheduled meds given. Pt prefers to not wear CPAP tonight. 2L/NC while sleeping. Ongoing plan of care.
[2025-01-03] VITALS (13 sets, daily range): BP systolic 123–157; BP diastolic 6–77; PULSE 72; O2SAT 98–99; BMI 35.6
--- NOTE | 2025-01-03 03:45 | PTCARENOTE ---
Labs drawn and sent. VS done. Pt helped to BR with rolling walker to void and have BM. Weighed on standing scale. Remains in SR. Amio gtt at 0.5 mg/min. Sats 99% on 2L/NC while in bed.
--- NOTE | 2025-01-03 04:02 | W.PN.CT ---
Today's Communication / Plan
-
Plan
-No major issues overnight. Hemodynamically and neurologically intact
-No further a-fib since the 2hrs yesterday morning. Currently on Amiodarone gtt
-F/U 2-view cxr
-Cont. current meds
-Pt transfused 1u PRBC yesterday for hgb 6.9/19.8 yesterday, H/H 7.9/22.4 today
-Maintain cordis another day, pt is a difficult stick for IV access/phlebotomy
-Diabetes education management f/u
-Mag oxide on hold, mg 2.7->2.3
-Cont. current meds (ASA, Plavix, Toprol XL, Amiodarone, Lipitor)
-Encourage use of IS
-OOB into chair/Ambulate
-Home likely tomorrow
Assessment / Plan
-
s/p CABG x 2 (KIRSTIN to LAD, GSV to D1), AVR with a 25mm Inspiris Resilia, and ELAA wiht a 45mm AtriClip POD#4
- Coronary artery disease status post PCI of LAD
- Severe aortic stenosis (P/M 66/36, LOS 1.3)
- b/l carotid artery stenosis with known chronic total occlusion of
left internal carotid artery
- History of transient ischemic attack/cerebrovascular accident, no residual defects.
- Non insulin-dependent diabetes mellitus.
- Morbid obesity (body mass index 35.0).
- Obstructive sleep apnea on CPAP.
- Hypertension.
- HLD
- acute blood loss anemia requiring transfusion
-Acute postop thrombocytopenia
-Acute postop atelectasis
-Acute postop hypovolemia with subsequent hypervolemia
-Acute postop rate controlled a-fib
Discussed patient care with: Cardiology, Nursing, Respiratory Therapy, Pharmacy and Care Team
Subjective
Procedure
s/p CABG x 2 (KIRSTIN to LAD, GSV to D1), AVR with a 25mm Inspiris Resilia, and ELAA wiht a 45mm AtriClip on 12/30/[address] Coleman.
-
Date of Service: January 03, 2025
Pt c/o mild incisional pain, otherwise feels well
Objective Data
-
PT 18.3 Sec (11.4-14.6) H 12/30/24 14:34
INR 1.47 12/30/24 14:34
APTT 32.7 Sec (23.4-35.0) 12/30/24 14:34
Vital Signs
Vital Signs
Temp Pulse Resp BP Pulse Ox
98.7 F 58 16 135/61 98
01/02/25 23:01 01/03/25 01:00 01/02/25 23:01 01/02/25 23:01 01/03/25 01:00
CT Intake/Output/Weight
01/02/25 01/02/25 01/03/25
06:59 18:59 06:59
Intake Total 360 / 477.6 369.8 / 503.3 133.5 / 503.3
Output Total 475 / 2085
Balance -115 / -1607.4 369.8 / 503.3 133.5 / 503.3
SaO2: 98 (CPAP)
Physical Exam
-
General: Awake, Oriented and AOx3
Cardiovascular: Regular rate & rhythm, No Murmurs, No Rub and No Gallop
Respiratory: Decreased Breath Sounds (at bases, otherwise clear)
Sternum: Stable
Incision: Clean, Dry, Intact and Dressing Intact
Extremities: Other (+trace edema)
Data Reviewed
-
Lab Results: Results Reviewed
Medications: Active Meds Reviewed
Chest X-Ray: Report Reviewed and Image Reviewed
ECG: Report Reviewed and Image Reviewed
[2025-01-03 04:32] LABS: Hematocrit 22.4 % (39.0-52.0); Hemoglobin 7.9 g/dL (13.0-18.0); Mean Corp Hgb Conc. 35.3 g/dL (33.0-37.0); Mean Corpuscular Hgb 32.9 pg (27.0-31.0); Mean Corpuscular Volume 93.3 fL (80.0-94.0); Mean Platelet Volume 10.1 fL (7.4-10.4); Platelet Count 131 10^3/uL (130-400); Red Cell Dist. Width 14.6 % (11.5-14.5); White Blood Cell Count 8.5 10^3/uL (4.8-10.8)
[2025-01-03 05:10] LABS: Blood Urea Nitrogen 23 mg/dl (9-20); Carbon Dioxide 27 mmol/L (22-30); Chloride 103 mmol/L (98-107); Estimated Creatinine Clearance 96 ml/min; Glucose 157 mg/dl (70-99); Magnesium 2.1 mg/dl (1.6-2.3); Sodium 135 mmol/L (135-145); eGFR > 60.00
[2025-01-03] MEDS: TYLENOL 1000 MG PO ×3 (06:11→22:26)
[2025-01-03] MEDS: LASIX 40 MG IV (08:19)
[2025-01-03] MEDS: KCL 40 MEQ PO (08:19)
[2025-01-03] MEDS: GLUCOPHAGE 500 MG PO ×2 (08:21→16:53)
[2025-01-03] MEDS: PROTONIX 40 MG PO (08:21)
[2025-01-03] MEDS: NEURONTIN 100 MG PO ×3 (08:21→22:27)
[2025-01-03] MEDS: THERAGRAN 1 TABLET PO (08:21)
[2025-01-03] MEDS: PACERONE 200 MG PO ×3 (08:21→22:26)
[2025-01-03] MEDS: PLAVIX 75 MG PO (08:21)
[2025-01-03] MEDS: LOW STRENGTH ASPIRIN 81 MG PO (08:21)
[2025-01-03] MEDS: TOPROL XL 12.5 MG PO ×2 (08:21→20:25)
[2025-01-03 08:25] LABS: Glucose - Point of Care 147 mg/dl (70-99)
[2025-01-03] MEDS: NOVOLOG FLEXPEN-MODERATE RESISTANCE SC ×3 (08:25→16:53)
[2025-01-03] MEDS: BACTROBAN 2% OINTMENT 1 APPLIC NASAL (08:26)
--- NOTE | 2025-01-03 11:20 | W.PN.CD ---
Today's Communication / Plan
-
Agree with current therapy
Impression / Plan
-
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
CAD and
- S/p BioAVR and S/P CABG x2 (REID to LAD, SVG to D1) for and CAD (Dr. Coleman, 12/30/2024)
IVCD, LVH with QRS widening, looks very much like preop EKGs to my review
Post-op Anemia, 2 units transfused on 12/29/2024
Post-op brief PAF
- If much more AFib then add oral anticoagulation
HTN
HLD, Goal LDL < 55.
DM, type II
Subjective:
Feeling better
DATA:
PFT's, 12/16/2024:
FEV1/FVC Ratio of 71%.
FEV1 was 3.02L or 105% of predicted.
FVC was 4.23L or 111% of predicted.
The flow volume curve is normal.
Intraprocedural JUAN CARLOS, 12/30/2024:
Normal biventricular systolic function with no regional wall motion
abnormalities. LVEF is 55-60% by visual inspection. Concentric hypertrophy of
the left ventricle is present.
Severe aortic stenosis of a calcified trileaflet valve with mild regurgitation.
Mild mitral regurgitation.
Mild tricuspid regurgitation.
Normal left atrial appendage.
Grade III atheromatous disease of the arch and descending aorta.
A small ocfb-le-tidua ASD/PFO is seen.
POST OPERATIVE FINDINGS
S/P AVR with size 25 bioprosthetic valve; CABG x 2: REID-LAD; SVG-D1, MATT
exclusion.
The bioprosthetic valve is well-seated with no paravalvular leak. The mean
gradient is 8 mmHg with an index of 2.5 L/min/meters sq. The left atrial
appendage is no longer visible with the absence of flow confirmed by color flow
Doppler. Otherwise unchanged exam.
CABG/AVR, 12/30/2024:
CABG x 2 (KIRSTIN to LAD, GSV to D1), ELAA (45mm AtriClip), AVR (#25 Inspiris Resilia)
Cardiac Catheterization, 11/25/2024:
LM: Large long vessel with mild ostial stenosis
LAD: Large vessel giving rise to a large early rising D1. There are overlapping stents from the proximal to mid/distal LAD. There is diffuse mild ISR as well as two focal areas of moderate/severe ISR in the proximal and mid LAD with GEOVANNA-3 flow
distally. The diagonal has a focal 70% stenosis in the proximal aspect of the vessel and otherwise diffuse mild disease.
LCx: Moderate caliber vessel giving rise to a small high rising OM1, moderate caliber bifurcating OM2, and small LPL branch. There is mild nonobstructive disease
RCA: Large vessel giving rise to a moderate caliber RPDA, large RPL1, and moderate caliber RPL2. There is diffuse, mild nonobstructive disease throughout the vessel. There is a 40% stenosis at the ostium.
Physical Exam
Vital Signs/Labs
Vital Signs
Temp Pulse Resp BP Pulse Ox
98.2 F 67 15 123/67 98
01/03/25 08:00 01/03/25 09:01 01/03/25 08:00 01/03/25 08:21 01/03/25 09:38
01/02/25 01/03/25 01/04/25
06:59 06:59 06:59
Actual Weight 120.4 kg 119 kg
01/03/25 04:06
01/03/25 04:06
PT 18.3 Sec (11.4-14.6) H 12/30/24 14:34
INR 1.47 12/30/24 14:34
APTT 32.7 Sec (23.4-35.0) 12/30/24 14:34
Magnesium 2.1 mg/dl (1.6-2.3) 01/03/25 04:06
Physical Exam
Constitutional: No acute distress
EENT: Anicteric
Cardiovascular: Rhythm & rate is regular and Pedal edema is absent
Respiratory: Respiratory effort normal and Lungs clear to auscul. (decreased at left base)
GI: Soft
Neuro/Psych: Alert
Data Reviewed
-
Date of Service: January 03, 2025
--- NOTE | 2025-01-03 11:42 | CM ---
Chart reviewed. Patient OOB ambulating in the maldonado and stairs with cardiac rehab. Patient is independent of ADLS, lives with his in a [address] ST, 2/4 TERESA, 0 DME. Plan is for the patient to return home with CT Transitional RN. CM to follow
[2025-01-03 13:04] LABS: Glucose - Point of Care 131 mg/dl (70-99)
--- NOTE | 2025-01-03 14:49 | PTCARENOTE ---
Pt sitting up in chair and chatting w/ family at bedside. Pt ambulating in room to bathroom and around unit several times today. Frequent bowel movements this morning that have slowed this afternoon. Stool is loose but formed. Pt has no
complaints.
[2025-01-03] MEDS: NSS IV (15:40)
--- NOTE | 2025-01-03 16:50 | PTCARENOTE ---
Cordis removed per CT WATERSHED ENGINEER order.
[2025-01-03 16:53] LABS: Glucose - Point of Care 111 mg/dl (70-99)
[2025-01-03 22:10] LABS: Glucose - Point of Care 116 mg/dl (70-99)
[2025-01-03] MEDS: LIPITOR 40 MG PO (22:26)
[2025-01-04] VITALS (7 sets, daily range): BP systolic 112–162; BP diastolic 60–77; PULSE 76; O2SAT 96; BMI 35.3
--- NOTE | 2025-01-04 | PTCARENOTE ---
Resumed care of patient from previous Rn. Walking rounds done. Resting in bed at time of assessment. SR HR 60s. V wire remains present. Pulse ox 95% on RA. Pulses palpable trace gen edema. BRP . All surgical sites c/d/i. will continue to monitor.
[2025-01-04] MEDS: TYLENOL PO (03:47)
[2025-01-04 05:29] LABS: Hematocrit 23.9 % (39.0-52.0); Hemoglobin 8.4 g/dL (13.0-18.0); Mean Corp Hgb Conc. 35.1 g/dL (33.0-37.0); Mean Corpuscular Hgb 32.7 pg (27.0-31.0); Mean Platelet Volume 9.8 fL (7.4-10.4); Platelet Count 158 10^3/uL (130-400); Red Blood Cell Count 2.57 10^6/uL (4.70-6.10); Red Cell Dist. Width 14.5 % (11.5-14.5)
[2025-01-04 05:52] LABS: Blood Urea Nitrogen 20 mg/dl (9-20); Calcium 8.5 mg/dl (8.4-10.2); Carbon Dioxide 24 mmol/L (22-30); Chloride 103 mmol/L (98-107); Estimated Creatinine Clearance 107 ml/min; Glucose 146 mg/dl (70-99); Magnesium 2.1 mg/dl (1.6-2.3); Potassium 4.6 mmol/L (3.5-5.1); Sodium 136 mmol/L (135-145); eGFR > 60.00
[2025-01-04 07:50] LABS: Glucose - Point of Care 139 mg/dl (70-99)
[2025-01-04] MEDS: NOVOLOG FLEXPEN-MODERATE RESISTANCE SC ×2 (07:50→13:34)
[2025-01-04] MEDS: PLAVIX 75 MG PO (08:28)
[2025-01-04] MEDS: PROTONIX 40 MG PO (08:28)
[2025-01-04] MEDS: THERAGRAN 1 TABLET PO (08:28)
[2025-01-04] MEDS: TOPROL XL 25 MG PO (08:28)
[2025-01-04] MEDS: MAGNESIUM OXIDE 500 MG PO (08:28)
[2025-01-04] MEDS: NEURONTIN 100 MG PO (08:28)
[2025-01-04] MEDS: LOW STRENGTH ASPIRIN 81 MG PO (08:28)
[2025-01-04] MEDS: PACERONE 200 MG PO (08:28)
[2025-01-04] MEDS: GLUCOPHAGE 500 MG PO (08:28)
--- NOTE | 2025-01-04 11:22 | CM ---
Chart reviewed. Patient is independent of ADLS, lives with his in a 2 ST, 4/2 TERESA, 0 DME. Plan isf or the patient to return home with CT Transitional RN. CM to follow
[2025-01-04] MEDS: COZAAR 50 MG PO (11:27)
--- NOTE | 2025-01-04 11:38 | W.DCSUMMARY ---
Addendum entered and electronically signed by Tanisha Velasco PA-C 01/07/25 08:49:
Response to query: No CHF/post operative volume overload only
Original Note:
Discharge Summary
Discharge Data
Date of Admission: 12/30/24
Date of Discharge: 01/04/25
-
Pending Results: No
Hospital Course
Primary care physician: Sharron Morel
Outpatient labor mediator: Vance Grossman
Inpatient consultants: [facility] cardiology, pulmonary shelter case manager
Procedures:
1. Aortic valve replacement, CABG x 2, left atrial appendage clip (12/30)
Primary Diagnosis:
1. Severe aortic stenosis
Secondary Diagnoses:
1. Coronary artery disease
2. Hypertension
3. Type 2 diabetes (A1c 6.5)
4. Obstructive sleep apnea with CPAP use
5. Class I obesity (BMI 35.2)
6. Hyperlipidemia
7. acute surgical blood loss anemia requiring transfusion
8. Acute postop thrombocytopenia
9. Acute postop atelectasis
10. Acute postop hypovolemia with subsequent hypervolemia
11. Acute postop rate controlled a-fib
12. Carotid artery stenosis (left ICA occluded�old)
13. Incidental finding of 6 mm pleural-based nodule within the posterior right lower lobe. Recommend 6-12 month follow-up CT to ensure stability.
HPI: 74-year-old male with history of severe and recent LHC with significant in-stent restenosis of LAD. Underwent outpatient TAVR workup and electively admitted 12/30/24 for AVR/CABG.
Hospital course: Patient underwent AVR (#25 Inspiris Resilia), CABG x 2 (KIRSTIN to LAD, GSV to D1), ELAA (#45mm AtriClip), and placement of right lower extremity TERESA drain by Dr. Colton Coleman. Intraoperative JUAN CARLOS reported EF of 55-60% with AV mean
gradient of 8 mmHg. Patient received 2 PRBC for 1 L of intraoperative blood loss. He returned to CVICU on insulin and Precedex. Cardene was added for hypertension. Patient was extubated to CPAP on the day of surgery. Beta-sunshine, aspirin, and
Plavix were initiated on postoperative day #1. Jeong was removed. On postoperative day #2, insulin was discontinued and metformin resumed. Patient was diuresed for volume overload and chest drains removed. Patient required an additional 1 PRBC
for hemoglobin of 6.9 on 4/13. Patient had a 2-hour episode of atrial fibrillation which was treated with IV heparin and amiodarone drip. On /, patient experienced brief 20-minute episode of atrial fibrillation which converted to sinus rhythm
with amiodarone. On 01/04 patient was started on losartan 50 mg for hypertension. 1 bipolar V wire was cut at skin level. 1 right lower extremity drain stitch was removed. On postoperative day #5, hemoglobin was stable at 8.4 and creatinine 0.8.
Patient ambulated in the halls and performed steps with cardiac rehab. Patient is deemed stable for discharge with transitional nurse follow-up. Patient was informed of incidental finding of the 6 mm pleural based nodule and recommendation for
follow-up CT in 6 to 12 months to ensure stability.
Home medication changes:
Discharge Plan
-
Patient Disposition: Home (Routine Discharge)
Discharge Diagnosis/Procedures: AVR/CABG/clip
Condition: Good
Diet: Low Cholesterol and 2 Gram Sodium
Activity: No strenuous activity
Driving Restrictions: Not until seen by your Dr
Bathing Restrictions: OK to Shower
Blood Work: BMP in 1 week
Other Services: Cardiac Rehab
Specialty Instructions: Weigh Daily- Call MD for wt gain/loss 3 lbs overnight/5 lbs in 1 week
Activity Restrictions/Additional Instructions:
ACTIVITY:
-No strenuous activity: no heavy lifting, pushing, pulling anything over 15 pounds for one month
-continue to use stairs as tolerated
DRIVING RESTRICTIONS:
-No driving for one month or until approved by your surgeon
WOUND CARE:
-Shower daily. Use soap & water.
-No lotions, creams or powders on incision area.
DIET:
-continue a low fat/low cholesterol diet.
-IF you are diabetic, continue carb controlled diet.
CARDIAC REHAB:
-Please make appointment to start in 5-6 weeks with your local hospital program. (See Cardiac Rehabilitation Discharge Booklet).
SPECIALTY INSTRUCTIONS:
-Weigh yourself daily. Call your physician for any weight gain/loss of 3 lbs overnight or 5 lbs in one week.
-REPORT any clicking noise or uneven appearance of your sternum to your surgeon immediately.
-If you smoke, you are instructed to quit. The [place] smoking hotline phone number is [phone]
Referrals:
CT Transitional Care Nurse [Outside] - in one to two days
(
The Cardiothoracic Transitional Care Nurse will call you to set up a visit in 1-2 days.)
Shavon Arroyo DO [Active] - in four to six weeks (Nodule FU)
Vance Grossman DO [Non-Admitting Privileges] - 02/22/25 7:40 am
Sharron Morel MD [Family Provider] - in four to six weeks (Please make an appointment in four to six weeks. )
Colton Coleman MD [Active] - 02/01/25 1:30 pm
Prescriptions:
New
acetaminophen 325 mg Tablet
650 mg PO Q4HPRN PRN (Reason: mild pain,headache,temp >101F ) Qty: 0 0RF
amiodarone 200 mg tablet
200 mg PO BID Qty: 60 2RF
clopidogrel 75 mg Tablet
75 mg PO DAILY Qty: 30 2RF
pantoprazole 40 mg Tablet,Delayed Release (Dr/Ec)
40 mg PO DAILY Qty: 30 2RF
gabapentin 100 mg Capsule
100 mg PO TID Qty: 30 0RF
oxycodone 5 mg Tablet
5 mg PO Q4HPRN PRN (Reason: severe pain) Qty: 10 0RF
Continued
metformin 500 MG tablet
500 mg PO BID
metoprolol succinate 50 MG tablet extended release 24 hr
50 mg PO HS
atorvastatin 40 mg Tablet
40 mg PO HS
aspirin 81 mg Tablet,Delayed Release (Dr/Ec)
81 mg PO HS
hydrochlorothiazide 25 mg Tablet
25 mg PO HS
losartan 100 mg Tablet
100 mg PO DAILY
omega-3 fatty acids 1,000 mg Capsule
1,000 mg PO HS
multivitamin Tablet
1 tab PO DAILY
Discontinued
nitroglycerin 0.4 MG tablet, sublingual
0.4 mg sublingual [id number] PRN (Reason: chest pain)
Patient Comments:
Took once a year ago
Discharge Orders:
Discharge Patient (As Directed); Ordered 01/04/25
Ordered By: Vikki Mcadams
Care Plan Goals
Care Plan Goals:
Problem: Readiness for enhanced knowledge related to diagnosis and treatment plan
Goal: Understand your diagnosis and treatment plan needs, including medications if applicable.
Instructions: Know your diagnosis, underlying causes and treatment plan options, including medications if applicable. Consult with your health care team to learn about your diagnosis and treatment plan, including medications if applicable.
Discharge Date and Time
Print Language: TURKMEN
--- NOTE | 2025-01-04 12:08 | PN.CDI ---
CDI
- -
CDI:
Physician Documentation Request
Admit Date: 12/30/24 04:45
Dear Doctor/ CVPA,
Please review the following and provide your response in the progress notes.
Clinical Indicators:
Pt admitted with CAD/Aortic Stenosis s/p CABG and MATT clip /Aortic Valve replacement
CT surgery note 01/02,' Decreased Breath Sounds ...at bases...Other (+trace edema )
ECHO 12/30,' LVEF is 55-60%
Per MAR pt did receive 4o mg IV Lasix on 01/01, 20 mg IV/40 mg Lasix on 01/02, 40 mg IV Lasix on 01/03.
Please provide in your notes the diagnosis associated with the use of IV Lasix:
Acute Diastolic CHF
No CHF/ Volume overload only
Other ( please specify)
Use of terms such as suspected, likely, concern for, or probable (associated with a specific diagnosis that is being evaluated, monitored, or treated as if it exists) are acceptable and can be coded in the inpatient setting, when documented at the
time of discharge.
Thank you,
Virginie Mcdermott RN
CDI Specialist
[place] [facility]
Please use your independent medical judgment in providing your response.
--- NOTE | 2025-01-04 12:21 | PTCARENOTE ---
Pt ambulating with steady gait. Pacer wire clipped by OCEANOLOGIST. Dressings removed. All incisions C/D/I. Pt reports pain tolerable. Pt took shower. on her way. Awaiting discharge order.
[2025-01-04] MEDS: PREVNAR 20 0.5 ML IM (13:06)
[2025-01-04 13:14] LABS: Glucose - Point of Care 117 mg/dl (70-99)
--- NOTE | 2025-01-04 14:11 | PTCARENOTE ---
Pt discharged to home with . All discharge instructions reviewed with pt, including meds and f/u appts. IV and tele d/c'd. Transfer to car via w/c by RN.
== END 2025-01-04 14:17 | disposition home or self-care (01) | DRG 220 ==
LOC: CVICU 04:45
PROVIDERS: Anesthesiology; Clinical Nurse Specialist Acute Care; ADMITTING PHYSICIAN Thoracic Surgery (Cardiothoracic Vascular Surgery); CONSULT PHYSICIAN Internal Medicine; FAMILY PHYSICIAN Family Medicine
PROC: B24BZZ4 Ultrasonography of Heart with Aorta, Transesophageal (ICD-10-PCS; 2024-12-30)
PROC: 021009W Bypass Coronary Artery, One Artery from Aorta with Autologous Venous Tissue, Open Approach (ICD-10-PCS; 2024-12-30)
PROC: 30233N1 Transfusion of Nonautologous Red Blood Cells into Peripheral Vein, Percutaneous Approach (ICD-10-PCS; 2024-12-30)
PROC: 02RF08Z Replacement of Aortic Valve with Zooplastic Tissue, Open Approach (ICD-10-PCS; 2024-12-30)
PROC: 02100ZC Bypass Coronary Artery, One Artery from Thoracic Artery, Open Approach (ICD-10-PCS; 2024-12-30)
PROC: 02L70CK Occlusion of Left Atrial Appendage with Extraluminal Device, Open Approach (ICD-10-PCS; 2024-12-30)
PROC: 3E0234Z Introduction of Serum, Toxoid and Vaccine into Muscle, Percutaneous Approach (ICD-10-PCS; 2025-01-04)
DX: I35.2 Nonrheumatic aortic (valve) stenosis with insufficiency (principal); D62 Acute posthemorrhagic anemia; T82.855A Stenosis of coronary artery stent, initial encounter; J98.11 Atelectasis; I25.10 Atherosclerotic heart disease of native coronary artery without angina pectoris; I65.23 Occlusion and stenosis of bilateral carotid arteries; I10 Essential (primary) hypertension; G47.33 Obstructive sleep apnea (adult) (pediatric); E66.01 Morbid (severe) obesity due to excess calories; I45.4 Nonspecific intraventricular block; D69.59 Other secondary thrombocytopenia; E86.1 Hypovolemia; E87.70 Fluid overload, unspecified; I48.91 Unspecified atrial fibrillation; E78.00 Pure hypercholesterolemia, unspecified; E11.65 Type 2 diabetes mellitus with hyperglycemia; R91.1 Solitary pulmonary nodule; E66.811 Obesity, class 1; Y83.1 Surgical operation with implant of artificial internal device as the cause of abnormal reaction of the patient, or of later complication, without mention of misadventure at the time of the procedure; Z23 Encounter for immunization; Z68.35 Body mass index [BMI] 35.0-35.9, adult; Z79.82 Long term (current) use of aspirin; Z79.84 Long term (current) use of oral hypoglycemic drugs; Z79.899 Other long term (current) drug therapy; Z82.49 Family history of ischemic heart disease and other diseases of the circulatory system; Z86.73 Personal history of transient ischemic attack (TIA), and cerebral infarction without residual deficits
CPT/HCPCS: 88305; 88311; 36415; 71045; 71046; 80048; 80053; 81003; 82248; 82330; 82565; 82805; 82947; 82962; 83036; 83735; 84132; 84302; 84520; 85014; 85018; 85025; 85027; 85049; 85610; 85730; 86803; 86850; 86900; 86901; 86920; 87070; 90677; 93005; 93312; 93320; 93325; 93880; 94002; 94010; 94660; C1713; G0009; P9016; P9045

== ENCOUNTER → 2025-06-10 13:33 | Outpatient (REF) | payer MEDICARE, OTHER, SELFPAY | LOC: RAD 13:33 | PROVIDERS: ATTENDING PHYSICIAN Nurse Practitioner Adult Health; FAMILY PHYSICIAN Family Medicine | DX: R91.1 Solitary pulmonary nodule (principal) | CPT/HCPCS: 71250 ==